=== PATIENT | female | born 1975 | race Caucasian/White ===

== ENCOUNTER → 2020-09-21 13:42 | Outpatient (REF) | payer MEDICAID, SELFPAY ==
--- NOTE | 2020-09-21 13:30 | ECG_ITS ---
Hook-up date: 2020-09-21 14:01:00 Duration: 47:59:00 Test Indications: PALPITATIONS Medications: [id number] QRS complexes * Ventricular ectopics which represent % of total QRS comp. * Supraventricular ectopics which represent % of total QRS comp. * Paced QRS complexs which represent % of total QRS comp. VENTRICULAR ECTOPY * Isolated * Bigeminal Cycles * Couplets * Runs * Beats in Runs * Beats LONGEST at * BPM at :: -- * Beats FASTEST at * BPM at :: -- SUPRAVENTRICULAR ECTOPY * Isolated * Couplets * Runs * Beats in Runs * Beats LONGEST at * BPM at :: -- * Beats FASTEST at * BPM at :: -- HEART RATES 57 MIN at 10:18:45 2020-09-22 89 AVG 140 MAX at 14:15:52 2020-09-22 LONGEST RR 1.0960 secs at 09:08:16 2020-09-22 S-T LEVELS Channel 1 - 128 mm at 14:01:00 2020-09-21 - 128 mm at 14:01:00 2020-09-21 Channel 2 - 128 mm at 14:01:00 2020-09-21 - 128 mm at 14:01:00 2020-09-21 Channel 3 - 128 mm at 03:32:01 -- - 128 mm at 03:32:01 Underlying rhythm is sinus; Average ventricuar rate 89/min; range 57-140/min; About 37% of the time, ventricular rate >100min, sinus tachycardia; No significant ectopy, tachy or naveen-arrhythmias; No events in patient diary; Referred By: Abiola Youssef Overread By: KRISTI LEO
== END ==
LOC: HO.CARD 13:42
PROVIDERS: PCP Family Medicine; Visit Provider Family Medicine
DX: R00.2 Palpitations (principal)
CPT/HCPCS: 93225; 93226

== ENCOUNTER 2020-09-29 15:06 | Outpatient (REF) | payer MEDICAID, SELFPAY ==
[2020-09-30 01:49] LABS: CT PCR NOT DETECTED (Not Detect.); NG PCR NOT DETECTED (Not Detect.)
[2020-10-03 19:21] LABS: HPV mRNA E6/E7 rflx Not Detected (Not Detected)
== END 2020-09-29 15:07 | disposition home or self-care (01) ==
LOC: HO.LAB 15:06
PROVIDERS: PCP Family Medicine; Referring Provider Family Medicine; Visit Provider Advanced Practice Midwife
DX: Z01.419 Encounter for gynecological examination (general) (routine) without abnormal findings (principal); Z20.2 Contact with and (suspected) exposure to infections with a predominantly sexual mode of transmission
CPT/HCPCS: 87491; 87591; 87624; 87625; 88142

== ENCOUNTER → 2021-10-24 14:06 | Outpatient (BNVA) | payer MEDICAID, SELFPAY | PROVIDERS: Visit Provider Advanced Practice Midwife ==

== ENCOUNTER 2021-11-29 11:37 | Outpatient (REF) | payer MEDICAID, SELFPAY ==
--- NOTE | ~2021-11-29 | MM_ITS ---
EXAMINATION: MM SCREENING DIGITAL BREAST TOMOSYNTHESIS, BILATERAL CLINICAL INFORMATION: Screening. Asymptomatic. Status post breast reduction surgery. The lifetime risk of breast cancer based on the Tyrer-Cuzick Model is 10.9%. COMPARISON: Mammography: January 13, 2020 and studies dating back to December 20, 2016 TECHNIQUE: Digital breast tomosynthesis is performed in both the craniocaudal and mediolateral oblique views along with computer-aided detection (CAD). Synthesized 2D images are generated from the tomosynthesis. FINDINGS: The breasts are heterogeneously dense, which may obscure small masses (ACR BI-RADS breast composition Category c). There are no significant masses, abnormal calcifications, or other abnormalities. MM/MM tomosynthesis screening BI IMPRESSION: There are no significant changes from prior study. ASSESSMENT: BI-RADS 1: Negative RECOMMENDATION: Routine annual mammography screening. This patient's information was entered into a reminder system with a target due date for their next mammogram.
== END 2021-11-29 11:38 | disposition home or self-care (01) ==
LOC: HO.MAMMO 11:37
PROVIDERS: PCP Family Medicine; Visit Provider Advanced Practice Midwife
DX: Z12.31 Encounter for screening mammogram for malignant neoplasm of breast (principal)
CPT/HCPCS: 77063; 77067

== ENCOUNTER → 2022-03-05 14:23 | Outpatient (BNVA) | payer MEDICAID, SELFPAY | PROVIDERS: PCP Family Medicine; Visit Provider Advanced Practice Midwife | DX: Z01.419 Encounter for gynecological examination (general) (routine) without abnormal findings (principal) ==

== ENCOUNTER → 2022-05-14 13:14 | Outpatient (REF) | payer MEDICAID, SELFPAY ==
--- NOTE | 2022-05-14 13:16 | CA_ITS ---
Transthoracic Echocardiogram Patient (Last, First, Middle): Cindy Miller, Gender: Female Date of : 1975 Age: 46 Procedure Date: 05/14/2022 Procedure Type: Transthoracic Echocardiogram Location: OP Height: 160.02 cm Weight: 95.26 kg BSA: 1.97 m2 Heart Rate: bpm BP: 106 / 70 mmHg Supervisor Respiratory: CLINT Referring MD: Marshal Ledezma MD Symptoms: BICUSPID AORTIC VALVE Study Quality: Good ECG Rhythm: Sinus Conclusions: - The left ventricular systolic function is normal. The calculated ejection fraction is 61% by biplane method. - There is a bicuspid aortic valve. No evidence of valvular dysfunction. Findings Left Ventricle Normal left ventricular cavity size. There is normal left ventricular wall thickness. The left ventricular systolic function is normal. The calculated ejection fraction is 61% by biplane method. There is no evidence of regional wall motion abnormalities. Diastolic function is normal for age. Right Ventricle Normal right ventricular cavity size and systolic function. Atria Both atria are normal in size. Aortic Valve There is a bicuspid aortic valve. There is no aortic valve regurgitation. No significant aortic stenosis. Mitral Valve The mitral valve appears normal. There is no mitral valve regurgitation. There is no mitral valve stenosis. Pulmonic Valve The pulmonic valve is likely normal. There is trace pulmonic valve regurgitation. Tricuspid Valve Normal tricuspid valve structure. There is no tricuspid valve regurgitation. Tricuspid regurgitation envelope is inadequate for calculation of right ventricular systolic pressure. Great Vessels The aortic annulus, sinuses of valsalva, and asc aorta are normal in size. Venous The inferior vena cava is normal in size and collapses greater than 50% with inspiration. Pericardium/Pleural There is no evidence of pericardial effusion. Prior Study Comparison No significant change compared to prior study dated: 05/22/2020. Measurements 2D Linear Measurements IVSd: 0.88 0.6-0.9/0.6-1.0 cm LVIDd: 4.34 3.9-5.3/4.2-5.9 cm LVIDd Index: 2.20 2.4-3.2/2.2-3.1 cm/m2 LVIDs: 2.35 2.0-3.6 cm LVPWd: 0.80 0.7-1.1 cm LA Diam: 2.10 2.7-3.8/3.0-4.0 cm LAIDs Index: 1.07 1.5-2.3 cm/m2 LV Mass: 141.20 67-162/88-224 g LV Mass Index: 71.68 43-95/49-115 g/m2 LVOT Diam: 2.00 3.0+(-)1.3 cm 2D Systolic Function EF 4C: 61.70 >55% EF 2C: 61.40 >55% EF BiP: 60.60 >55% Mitral Valve MV Pk E: 0.72 MV PK A: 0.99 MV Decel Time: 294.00 E/A: 0.70 E'Lateral: 12.70 E'Medial: 8.81 E/E' Med: 8.20 E/E' Lat: 5.70 PHT: 86.00 MVA PHT: 2.56 Decel [place]: 2.45 Aortic Valve AoV Pk Jairo: 2.07 AoV Mn Jairo: 1.49 AoV VTI: 0.41 AoV Pk Grad: 17.00 Aov Mn Grad: 10.00 VEE Cont.VTI: 1.75 LVOT LVOT Pk Jairo: 1.12 LVOT Mn Jairo: 0.76 LVOT VTI: 0.23 LVOT Pk Grad: 5.00 LVOT Mn Grad: 3.00 LVOT Diam: 2.00 LVOT Area: 3.14 Diastolic Function MV Pk E: 0.72 MV Pk A: 0.99 E/A: 0.70 E'Medial: 8.81 E/E' Med: 8.20 E' Laterial: 12.70 E/E' Lat: 5.70 Right Ventricle TAPSE (mm): 21.20 TVS' Jairo: 10.70 Great Vessels Aorta Sinus of Valsalva: 3.19 2.0-3.[address] [place]: 2.43 1.7-3.4 cm Ao Asc: 3.10 2.1-3.4 cm Ao Arch: 2.80 Updated in Other Vendor System with Status of Final Marshal Ledezma MD electronically signed on 05/17/2022 11:33:08 AM with status of Final
== END ==
LOC: HO.CARD 13:14
PROVIDERS: PCP Family Medicine; Visit Provider Internal Medicine
DX: Z13.89 Encounter for screening for other disorder (principal)
CPT/HCPCS: 93306

== ENCOUNTER → 2022-05-23 12:54 | Outpatient (BNVA) | payer MEDICAID, SELFPAY | PROVIDERS: PCP Family Medicine; Referring Provider Family Medicine; Visit Provider Internal Medicine | DX: I10 Essential (primary) hypertension (principal); Q23.1 Congenital insufficiency of aortic valve; Z79.899 Other long term (current) drug therapy | CPT/HCPCS: 93005; 99212 ==

== ENCOUNTER 2023-02-28 12:24 | Outpatient (REF) | payer MEDICAID, SELFPAY ==
--- NOTE | ~2023-02-28 | XR_ITS ---
EXAMINATION: XR BILATERAL KNEES CLINICAL INFORMATION: Reason for Exam ACUTE PAIN COMPARISON: Knee radiographs 06/26/2017 TECHNIQUE: 3 views of the bilateral knees FINDINGS: RIGHT KNEE: No acute fracture or dislocation. Joint spaces are maintained. No joint effusion. Soft tissues are unremarkable. LEFT KNEE: No acute fracture or dislocation. Joint spaces are maintained. No joint effusion. Soft tissues are unremarkable. XR/XR knee LT 3V IMPRESSION: * No acute osseous abnormality.
--- NOTE | ~2023-02-28 | XR_ITS ---
EXAMINATION: XR BILATERAL KNEES CLINICAL INFORMATION: Reason for Exam ACUTE PAIN COMPARISON: Knee radiographs 06/26/2017 TECHNIQUE: 3 views of the bilateral knees FINDINGS: RIGHT KNEE: No acute fracture or dislocation. Joint spaces are maintained. No joint effusion. Soft tissues are unremarkable. LEFT KNEE: No acute fracture or dislocation. Joint spaces are maintained. No joint effusion. Soft tissues are unremarkable. XR/XR knee RT 3V IMPRESSION: * No acute osseous abnormality.
== END 2023-02-28 12:25 | disposition home or self-care (01) ==
LOC: HO.XRAY 12:24
PROVIDERS: PCP Family Medicine; Visit Provider Family Medicine
DX: M25.561 Pain in right knee (principal); M25.562 Pain in left knee
CPT/HCPCS: 73562

== ENCOUNTER 2023-02-28 15:47 | Outpatient (REF) | payer MEDICAID, SELFPAY ==
--- NOTE | ~2023-02-28 | MM_ITS ---
EXAMINATION: MM SCREENING DIGITAL BREAST TOMOSYNTHESIS, BILATERAL CLINICAL INFORMATION: Screening. Asymptomatic. The lifetime risk of breast cancer based on the Tyrer-Cuzick Model is 11.9%. COMPARISON: Mammography: 11/29/2021 and studies dating back to 12/20/2016. TECHNIQUE: Digital breast tomosynthesis is performed in both the craniocaudal and mediolateral oblique views along with computer-aided detection (CAD). Synthesized 2D images are generated from the tomosynthesis. FINDINGS: The breasts are heterogeneously dense, which may obscure small masses (ACR BI-RADS breast composition Category c). There are some regions of architectural distortion seen bilaterally which appear to be stable and related to patient's reduction mammoplasty. Within the inferior lateral aspect of the left breast there is an enlarging 1 cm well-circumscribed density approximately 7 cm from the nipple for which spot compression and ultrasound evaluation is recommended. There are other circumscribed densities scattered within both breasts. About the central lateral aspect of the right breast there is a lobular contour density measuring approximately 1.6 x 0.7 cm in size with some stable calcifications. This is more prominent than on prior studies and spot compression view and possible ultrasound is recommended. MM/MM tomosynthesis screening BI IMPRESSION: Bilateral densities for further evaluation as described. ASSESSMENT: BI-RADS 0: Incomplete - Need Additional Imaging Evaluation RECOMMENDATION: 1. Additional views of the bilateral breasts. 2. Targeted ultrasound if warranted after review of the additional views. 3. Radiology department staff will contact the patient for additional imaging.
== END 2023-02-28 15:48 | disposition home or self-care (01) ==
LOC: HO.MAMMO 15:47
PROVIDERS: PCP Family Medicine; Visit Provider Family Medicine
DX: Z12.31 Encounter for screening mammogram for malignant neoplasm of breast (principal)
CPT/HCPCS: 77063; 77067

== ENCOUNTER 2023-03-25 13:15 | Outpatient (REF) | payer MEDICAID, SELFPAY ==
--- NOTE | ~2023-03-25 | MM_ITS ---
EXAMINATION: MM DIAGNOSTIC DIGITAL BREAST TOMOSYNTHESIS, BILATERAL US DIAGNOSTIC ULTRASOUND BREAST, LEFT CLINICAL INFORMATION: Recall from screening for asymmetric density central right breast and oval nodule mid central left breast. Prior history reduction mammoplasty over the years ago. COMPARISON: Prior mammography exams, most recent 02/28/2023. TECHNIQUE: Digital breast tomosynthesis is performed. 2D images are generated from the tomosynthesis. The following views are obtained: Bilateral spot CC, bilateral spot MLO. Ultrasound left breast is targeted to the mid outer breast using grayscale imaging and color Doppler without and with harmonics. FINDINGS: The breasts are heterogeneously dense, which may obscure small masses (ACR BI-RADS breast composition Category c). Additional views right chest demonstrate fibronodular parenchymal pattern similar to borderline decreased from prior exams. There is no interval mass or architectural abnormality or developing density in the area for recall. Additional views left breast demonstrates circumscribed 1 cm nodule with smooth margins representing new finding. Ultrasound left breast demonstrates a simple cyst 4:00 position 8 cm from nipple measuring approximately 1.0 x 0.7 cm. Margins are circumscribed and there is increased through-transmission of sound and no associated color flow. Results are discussed with the patient at time of visit. MM/MM tomosynthesis added view BI IMPRESSION: Left: -Incidental simple cyst 1 cm corresponding to recent mammography. Right: -No significant changes from prior studies. ASSESSMENT: BI-RADS 2: Benign RECOMMENDATION: Routine annual mammography screening. This patient's information was entered into a reminder system with a target due date for their next mammogram.
== END 2023-03-25 13:16 | disposition home or self-care (01) ==
LOC: HO.MAMMO 13:15
PROVIDERS: PCP Family Medicine; Visit Provider Family Medicine
DX: R92.2 Inconclusive mammogram (principal)
CPT/HCPCS: 76642; 77062; 77066

== ENCOUNTER 2024-02-19 12:54 | Outpatient (REF) | payer MEDICAID, SELFPAY ==
--- NOTE | ~2024-02-19 | XR_ITS ---
EXAMINATION: XR CHEST CLINICAL INFORMATION: Dyspnea on exertion COMPARISON: CTA chest 03/06/2018 TECHNIQUE: 2 views of the chest were obtained. FINDINGS: A right chest wall jugular port is present with its tip just above the SVC/RA junction. No significant abnormality is noted involving the heart, lungs, mediastinum, bony thorax or soft tissues. XR/XR chest 2V IMPRESSION: Unremarkable examination.
== END 2024-02-19 12:55 | disposition home or self-care (01) ==
LOC: HO.HHCX 12:54
PROVIDERS: Visit Provider Family Medicine
DX: R06.09 Other forms of dyspnea (principal)
CPT/HCPCS: 71046

== ENCOUNTER 2024-02-19 13:14 | Outpatient (REF) | payer MEDICAID, SELFPAY ==
[2024-02-19 15:55] LABS: MANUAL DIFF FLAG NO
[2024-02-19 15:59] LABS: Basophils Percent Auto 0.3 % (0-2); Hematocrit 38.4 % (37.0-47.0); Hemoglobin 12.6 g/dl (12.0-16.0); Imm Gran Abs Auto 0.02 X10*3/uL (0.00-0.03); Imm Gran Pct Auto 0.5 % (0.0-0.4); Lymphocytes Absolute Auto 0.5 X10*3/uL (1.2-4.9); Lymphocytes Percent Auto 13.5 % (20-40); Mean Corpuscular HGB Conc 32.8 g/dl (31.0-35.0); Mean Corpuscular Hemoglobin 31.7 pg (27.0-33.0); Mean Corpuscular Volume 96.5 fL (80.0-98.0); Mean Platelet Volume 10.5 fL (9.4-12.3); Monocytes Absolute Auto 0.2 X10*3/uL (0.1-1.2); Neutrophils Absolute Auto 3.1 x10*3/uL (2.0-8.3); Neutrophils Percent Auto 79.7 % (45-73); Platelet Count 185 X10*3/uL (160-400); Red Blood Count 3.98 X10*6/uL (4.20-5.50); White Blood Count 3.9 X10*3/uL (4.8-10.8)
[2024-02-19 16:08] LABS: Estimated Average Glucose 117 mg/dL; Hemoglobin A1c % 5.7 % (<6.0)
[2024-02-19 16:16] LABS: Alanine Aminotransferase 59 U/L (0-31); Albumin Level 4.2 g/dL (3.5-5.0); Alkaline Phosphatase 112 U/L (39-117); Anion Gap 9 (12-20); Aspartate Amino Transferase 33 U/L (5-31); Bilirubin Direct 0.2 mg/dL (0.0-0.5); Bilirubin Total 0.5 mg/dL (0.0-1.0); Blood Urea Nitrogen 14 mg/dL (9-16); Calcium 10.4 mg/dL (8.4-10.2); Carbon Dioxide 28 mmol/L (22-29); Chloride 105 mmol/L (96-108); Cholesterol 204 mg/dL (<200); Estimated Glomerular Filt Rate > 60; Glucose Random 174 mg/dL (60-115); HDL Cholesterol 59 mg/dL (>40); LDL Cholesterol Calculated 133 mg/dL (<100); Potassium 4.3 mmol/L (3.3-5.1); Sodium 138 mmol/L (135-145); Total Protein 8.2 g/dL (6.5-8.0); Triglycerides 62 mg/dL (<150)
[2024-02-19 16:30] LABS: Vitamin D 25-OH Total 36.1 ng/mL (>30)
[2024-02-19 16:33] LABS: Free T4 (Free Thyroxine) 0.89 ng/dL (0.71-1.85)
[2024-02-19 17:56] LABS: CT PCR NOT DETECTED (Not Detect.); NG PCR NOT DETECTED (Not Detect.)
[2024-02-20 08:15] LABS: HBS Num1 0.28 mIU/mL (0-7.99); HBsAGNum1 0.32 S/CO (0.00-0.99); Hepatitis B Surface Antigen Negative (Negative); ~HepC Num1 0.12 S/CO (0.00-0.79); ~Hepatitis B Surface Antibody NONREACTIVE (Nonreactive); ~Hepatitis C Antibody Nonreactive (Nonreactive)
[2024-02-20 08:20] LABS: HIV AB/AG Nonreactive (Nonreactive); HIV Num 1 0.05 S/CO (0.00-0.99)
[2024-02-20 11:28] LABS: RPR Rapid Plasma Reagin NON-REACTIVE (NON-REACTIVE)
== END 2024-02-19 13:15 | disposition home or self-care (01) ==
LOC: HO.HHCL 13:14
PROVIDERS: Visit Provider Family Medicine
DX: Z01.419 Encounter for gynecological examination (general) (routine) without abnormal findings (principal); I10 Essential (primary) hypertension; C18.9 Malignant neoplasm of colon, unspecified; Z98.51 Tubal ligation status; Z79.899 Other long term (current) drug therapy
CPT/HCPCS: 0353U; 36415; 71046; 80048; 80061; 80076; 82306; 83036; 84439; 84443; 85025; 86592; 86706; 86803; 87340; 87389; 99396

== ENCOUNTER 2024-02-19 13:42 | Outpatient (AMB) | payer MEDICAID, SELFPAY ==
--- NOTE | 2024-02-19 13:46 | MHC.OFFVIS ---
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 She says she has never had an abnormal Pap smear. She has not sexually active and has not been for 9 years. She is currently undergoing chemotherapy that she has being currently infused via pump at the moment. She had colon cancer diagnosed last April and it has metastasized to her liver. The last CT scan said that her lesions on her liver were much smaller and she has another CT scan on Friday and follow-up visit a few days later with the doctor to review this she says she believes she has a couple of polyps in her colon that will be removed sometime after the liver is cleared. She has her 4 daughters who support her and she has her 5 grand children and she likes playing with them and spending time with them. The 1st bout of chemotherapy was very hard with lots of side effects but now she is enduring it a whole lot better. She has no worries about any infection and has not had any sexual contact in 9 years so does not need STI testing. Patient states she has not had any menses since she started the chemotherapy. [facility] Medical History (Updated 02/19/24 @ 14:43 by Lorraine Card CNM) Colon cancer Migraine with aura Anemia HTN (hypertension) Surgical History (Updated 02/19/24 @ 14:43 by Lorraine Card CNM) Hx of tubal ligation Hx of bilateral breast reduction surgery Family History Maternal Aunt Breast cancer Social History Alcohol intake: never Gender identity: Female Female Reproductive History Menstrual Age of Menarche: 11 Duration of menses: 3-5 days control method: permanent sterilization Total pregnancies: 5 Full term: 4 Date of last pap smear: 10/02/20 (neg,previous [id number] wnl) History of abnormal mammogram: No Physical Exam Const Other: Patient is wearing a pump attached by a belt externally that is infusing chemotherapy agents into her right upper chest and is covered with a Tegaderm dressing. She has scars from breast reduction surgery years ago General: healthy appearing, comfortable, no acute distress, well developed and alert Nutritional Appearance: average body habitus Orientation/consciousness: patient oriented x3 Limitations: no limitations HEENT Head: Yes normocephalic Neck Neck: Yes normal visual inspection Chest Chest palpation & inspection: normal inspection of the chest Breast/axilla inspection: normal inspection of the breasts and normal inspection of the axillae Breast/axilla palpation: normal palpation of the breasts and normal palpation of the axillae Resp Effort & Inspection: normal respiratory effort GI Inspection: Yes normal to inspection, No Abdominal wall edema and No distended Palpation (GI): Soft to palpation and nontender Other: External vagina within normal limits vagina pink moist cervix multiparous pink moist with normal healthy appearing mucus uterus is small anteverted mobile nontender good tone with Kegel. General: Yes bladder normal to palpation External Female Exam: normal external appearance and normal appearance of the urethra Speculum Exam - Vagina: normal appearance of the vagina, normal palpation and normal vaginal discharge Speculum Exam - Cervix: normal appearance of the cervix, normal palpation and nontender Bimanual exam- vagina & uterus: normal bimanual exam, normal palpation, uterine size normal, bladder normal to palpation, consistency normal, normal palpation, uterine mobility normal, uterine shape normal, No Cervical tenderness present, non-tender and no cervical motion tenderness Bimanual Exam- Adnexa, other: normal adnexae, no masses, normal and No adnexal tenderness Neuro General: patient oriented x3 Results Reviewed Results Reviewed: Name: Cindy Miller Specimen #: [id number] Age/Sex: 44/F Attending: Maral Patel CNM : 1975 Submitted by: Maral Patel CNM Collected: 09/29/20 MR #: [id number] Received: 10/02/20 Status: [facility] REF Location: .LAB Interpretation Satisfactory for evaluation. Negative for intraepithelial lesion or malignancy. HPV mRNA E6/E7: NOT DETECTED This assay detects E6/E7 viral messenger RNA (mRNA) from 14 high-risk HPV types (16, 18, 31, 33, 35, 39, 45, 51, 52, 56, 58, 59, 66, 68) HPV testing performed by [facility], [place], [place]. See reference laboratory portion of the EMR for entire report. Clinical Information LMP: On ocp's Previous PAP test: 2015, wnl Other history: On ocp's Material Received ThinPrep cervical Electronically Signed By: Leonor Cummins 10/16/20 1324 The Pap Test is a screening procedure with the inherent possibility of both false negative and false positive results. Results should be interpreted in the context of historic and current clinical findings. Reliability of the Pap Test is enhanced by performing the test on a regular repetitive basis. Patient: Cindy Miller Age/Sex: 44/F MR#: [id number] Page 1 of 1 Assessment & Plan Assessment & Plan (1) Encounter for annual routine gynecological examination: Code(s): Z01.419 - Encounter for gynecological examination (general) (routine) without abnormal findings (2) Breast cancer screening: Comment: States she gets yearly mammograms and her next 1 is coming up in about 2 weeks Code(s): Z12.39 - Encounter for other screening for malignant neoplasm of breast (3) Colon cancer: Comment: Patient is currently undergoing chemotherapy via a pump that she wears on her for her colon cancer, with Mets to the liver, she says it was discovered April of 2023. Code(s): C18.9 - Malignant neoplasm of colon, unspecified (4) Hx of tubal ligation: Code(s): Z98.51 - Tubal ligation status Plan -----Discussed in this visit the following: healthy balanced diet, regular and consistent exercise, getting recommended health screens, doing the best she can for her particular health concerns, kegel exercises, pap smear screening and followup recommendations, mammography screening and SBE, normal changes in cycles in her life stage--- . Patient is currently undergoing chemotherapy for her colon cancer with metastases to her liver. She is getting ongoing care and CT scan and evaluations and follow-up with her providers and she is also getting her mammogram screening which is also coming up soon. She has not sexually active she has no longer getting menses since she started the chemo. She has support of her family and daughters. She enjoys spending time with her grand children and is feeling very hopeful we will see her in 1 year Pap smear was done no other testing for STIs necessary or done. Orders: Orders Pap Smear Today Z01.419 - Encounter for gynecological examination (general) (routine) without abnormal findings Coding Level of Care Code Est Pt Prev Care 40-64y(82631) Diagnoses Encounter for annual routine gynecological examination Z01.419 Breast cancer screening Z12.39 Colon cancer C18.9 Hx of tubal ligation Z98.51
[2024-02-19 13:50] VITALS: BP 128/74; BMI 30.3
== END 2024-02-19 14:36 | disposition home or self-care (01) ==
LOC: HO.HWSM 13:42
PROVIDERS: PCP Family Medicine; Visit Provider Advanced Practice Midwife
DX: Z01.419 Encounter for gynecological examination (general) (routine) without abnormal findings (principal); Z12.39 Encounter for other screening for malignant neoplasm of breast; C18.9 Malignant neoplasm of colon, unspecified; Z98.51 Tubal ligation status
CPT/HCPCS: 99396

== ENCOUNTER 2024-02-19 14:36 | Outpatient (REF) | payer MEDICAID, SELFPAY ==
[2024-02-26 04:34] LABS: HPV mRNA E6/E7 rflx Not Detected (Not Detected)
== END 2024-02-19 14:37 | disposition home or self-care (01) ==
LOC: HO.LAB 14:36
PROVIDERS: Visit Provider Advanced Practice Midwife
DX: Z01.419 Encounter for gynecological examination (general) (routine) without abnormal findings (principal); R06.09 Other forms of dyspnea; I10 Essential (primary) hypertension
CPT/HCPCS: 87624; 88142

== ENCOUNTER 2024-03-02 12:28 | Outpatient (REF) | payer MEDICAID, SELFPAY ==
--- NOTE | ~2024-03-02 | MM_ITS ---
EXAMINATION: MM SCREENING DIGITAL BREAST TOMOSYNTHESIS, BILATERAL CLINICAL INFORMATION: Screening. Asymptomatic. The patient is status post bilateral breast reduction. COMPARISON: Mammography: This study is compared with prior exams dating back to 2018. TECHNIQUE: Digital breast tomosynthesis is performed in both the craniocaudal and mediolateral oblique views along with computer-aided detection (CAD). Synthesized 2D images are generated from the tomosynthesis. FINDINGS: There are scattered areas of fibroglandular density (ACR BI-RADS breast composition Category b). There are no significant masses, abnormal calcifications, or other abnormalities. There are post reduction changes in each breast. MM/MM tomosynthesis screening BI IMPRESSION: No mammographic evidence of malignancy. ASSESSMENT: BI-RADS BI-RADS 2 - Benign Findings RECOMMENDATION: Routine annual mammography screening. 1 year F/U This examination should not preclude the clinical evaluation of a suspicious palpable abnormality. This patient's information was entered into a reminder system with a target due date for their next mammogram.
== END 2024-03-02 12:29 | disposition home or self-care (01) ==
LOC: HO.MAMMO 12:28
PROVIDERS: PCP Family Medicine; Visit Provider Family Medicine
DX: Z12.31 Encounter for screening mammogram for malignant neoplasm of breast (principal)
CPT/HCPCS: 77063; 77067

== ENCOUNTER → 2024-03-02 13:00 | Outpatient (BNV) | payer MEDICAID, SELFPAY | PROVIDERS: PCP Family Medicine; Visit Provider Radiology Diagnostic Radiology | DX: Z12.31 Encounter for screening mammogram for malignant neoplasm of breast (principal) | CPT/HCPCS: 77063; 77067 ==

== ENCOUNTER → 2024-04-09 10:43 | Outpatient (REF) | payer MEDICAID, SELFPAY ==
--- NOTE | 2024-04-09 10:46 | CA_ITS ---
Transthoracic Echocardiogram Patient (Last, First, Middle): Cindy Miller, Gender: Female Date of : 1975 Age: 48 Procedure Date: 04/09/2024 Procedure Type: Transthoracic Echocardiogram Location: OP Height: 160. cm Weight: 80.29 kg BSA: 1.84 m2 Heart Rate: 75 bpm BP: 105 / 75 mmHg Bike Technician: ZEFERINO Referring MD: Marshal Ledezma MD Symptoms: Q23.1 - Congenital insufficiency of aortic valve Study Quality: Adequate ECG Rhythm: Sinus Conclusions: - Normal left ventricular size, thickness, systolic function, and wall motion. - Diastolic function is normal for age. - Normal right ventricular cavity size and systolic function. - There is a bicuspid aortic valve. The [place] is between the right coronary cusp and left coronary cusp. There is no aortic valve stenosis. There is no aortic valve regurgitation. Findings Left Ventricle Normal left ventricular size, thickness, systolic function, and wall motion. The visually estimated ejection fraction is between 60-65%. Diastolic function is normal for age. Right Ventricle Normal right ventricular cavity size and systolic function. Atria Both atria are normal in size. Aortic Valve There is a bicuspid aortic valve. The [place] is between the right coronary cusp and left coronary cusp. There is no aortic valve stenosis. There is no aortic valve regurgitation. Mitral Valve Normal mitral valve structure and function. There is no mitral valve regurgitation. There is no mitral valve stenosis. Pulmonic Valve The pulmonic valve is likely normal. Tricuspid Valve Normal tricuspid valve structure. There is no tricuspid valve regurgitation. Tricuspid regurgitation envelope is inadequate for calculation of right ventricular systolic pressure. Normal right atrial pressure. Great Vessels The visualized portions of the pulmonary artery and branches are normal. Venous The inferior vena cava is normal in size and collapses greater than 50% with inspiration. Pericardium/Pleural There is no evidence of pericardial effusion. Prior Study Comparison No significant change compared to prior study dated: 05/14/2022. Measurements 2D Linear Measurements IVSd: 0.93 0.6-0.9/0.6-1.0 cm LVIDd: 4.08 3.9-5.3/4.2-5.9 cm LVIDd Index: 2.22 2.4-3.2/2.2-3.1 cm/m2 LVIDs: 2.26 2.0-3.6 cm LVPWd: 0.91 0.7-1.1 cm LA Diam: 2.50 2.7-3.8/3.0-4.0 cm LAIDs Index: 1.36 1.5-2.3 cm/m2 LV Mass: 144.48 67-162/88-224 g LV Mass Index: 78.52 43-95/49-115 g/m2 LVOT Diam: 2.20 3.0+(-)1.3 cm 2D Systolic Function EF 4C: 67.20 >55% EF 2C: 61.30 >55% EF BiP: 65.10 >55% Mitral Valve MV Pk E: 0.73 MV PK A: 0.73 MV Decel Time: 298.00 E/A: 1.00 E'Lateral: 8.81 E'Medial: 7.40 E/E' Med: 9.80 E/E' Lat: 8.30 PHT: 87.00 MVA PHT: 2.53 Decel [place]: 2.44 Aortic Valve AoV Pk [place]: 1.69 AoV Mn [place]: 1.20 AoV VTI: 0.31 AoV Pk Grad: 11.00 Aov Mn Grad: 7.00 VEE Cont.VTI: 2.20 LVOT LVOT Pk [place]: 0.98 LVOT Mn [place]: 0.68 LVOT VTI: 0.18 LVOT Pk Grad: 4.00 LVOT Mn Grad: 2.00 LVOT Diam: 2.20 LVOT Area: 3.80 Diastolic Function MV Pk E: 0.73 MV Pk A: 0.73 E/A: 1.00 E'Medial: 7.40 E/E' Med: 9.80 E' Laterial: 8.81 E/E' Lat: 8.30 Right Ventricle TAPSE (mm): 18.70 TVS' [place]: 9.46 Tricuspid Valve RA Press: 3.00 Great Vessels Aorta Sinus of Valsalva: 3.00 2.0-3.5 cm Ao Asc: 3.10 2.1-3.4 cm Pulmonary Valve PV Pk [place]: 0.90 Peak PV Grad: 3.00 Updated in Other Vendor System with Status of Final Geraldo Butt MD electronically signed on 04/12/2024 5:20:25 PM with status of Final
== END ==
LOC: HO.CARD 10:43
PROVIDERS: Absent Provider Internal Medicine Cardiovascular Disease; PCP Family Medicine; Visit Provider Family Medicine
DX: Q23.1 Congenital insufficiency of aortic valve (principal); R06.09 Other forms of dyspnea
CPT/HCPCS: 93306

== ENCOUNTER → 2024-04-09 10:46 | Outpatient (BNV) | payer MEDICAID, SELFPAY | PROVIDERS: Absent Provider Internal Medicine Cardiovascular Disease; PCP Family Medicine; Visit Provider Internal Medicine Cardiovascular Disease | DX: Q23.1 Congenital insufficiency of aortic valve (principal) | CPT/HCPCS: 93303 ==

== ENCOUNTER 2024-05-25 12:29 | Outpatient (AMB) | payer MEDICAID, SELFPAY ==
[2024-05-25 12:34] VITALS: BP 116/76; PULSE 91; BMI 31.4
--- NOTE | 2024-05-25 12:34 | A.OFFVIS_ITS ---
Vital Signs 05/25/24 12:34 Height 5 ft 3 in Weight 177 lb 4.026 oz BMI 31.4 BP 116/76 Blood Pressure Location Lt brachial Position Sitting Pulse 91 Intake Visit Reasons: 2 years followup w/ekg after echo dx: ess hyper Padder Required: Yes Padder Name: Amada [id number]/micheal/niuean Accompanied by: Self / Same As Patient Allergies No Known Allergies Allergy (Verified 02/19/24 13:52) Medication List - Last Reconciled 05/25/24 by Marshal Ledezma MD amitriptyline 10 mg PO DAILY dexamethasone 4 mg PO DAILY hydrochlorothiazide 25 mg PO DAILY lisinopril 30 mg PO DAILY melatonin 10 mg PO BEDTIME PRN metformin 500 mg PO BID montelukast (Singulair) 10 mg PO DAILY multivitamin 1 tab PO DAILY omeprazole 20 mg PO DAILY ondansetron HCl 8 mg PO Q8H pantoprazole 20 mg PO DAILY prochlorperazine maleate 10 mg PO Q8H PRN HPI Comments Details: Cindy returns for follow-up. Last seen in 2019. She has bicuspid aortic valve. She has a history of hypertension on lisinopril and hydrochlorothiazide. In the process of getting worked up for shortness of breath and chest discomfort she had an echocardiogram showing bicuspid aortic valve. However no valvular dysfunction. She is getting seen for this periodically. Otherwise, patient states that she got diagnosed with colon cancer. Per [facility] notes, metastatic adenocarcinoma of colon with liver and possible bone Mets. From cardiac, no specific complaints. She has had longstanding atypical chest pains and that has still the same. Nonexertional. [facility] Medical History (Updated 03/08/24 @ 09:53 by Lorraine Card CNM) Colon cancer Migraine with aura Anemia HTN (hypertension) Surgical History (Updated 02/19/24 @ 14:43 by Lorraine Card CNM) Hx of tubal ligation Hx of bilateral breast reduction surgery Family History Maternal Aunt Breast cancer Social History (Updated 05/25/24 @ 12:42 by Eulalia Ferrari CMA) Alcohol intake: never Patient Tobacco Use Status: Never used Tobacco Gender identity: Female Female Reproductive History Menstrual Age of Menarche: 11 Review of Systems Const Denies chills, Denies fatigue, Denies fever(s), Denies weight gain and Denies weight loss Card Denies chest pain, Denies leg edema, Denies lightheadedness, Denies palpitatio ns, Denies dyspnea on exertion and Denies orthopnea Resp Denies cough and Denies dyspnea on exertion GI Reports melena, Denies hematochezia and Denies change in stool character Musc Denies muscle weakness and Denies radiating pain into limb Endo Denies fatigue and Denies palpitations Physical Exam Vital Signs: Last Vital Signs Pulse 91 05/25/24 12:34 BP 116/76 05/25/24 12:34 BMI result Body Mass Index 31.4 Const General: comfortable and no acute distress Orientation/consciousness: patient oriented x3 HEENT Other: Unremarkable Head: Yes normal to inspection Neck Neck: Yes normal visual inspection Chest Chest palpation & inspection: normal inspection of the chest Resp Auscultation: clear to auscultation bilaterally Cardio Palpation: normal PMI Heart sounds: S1 normal heart sound present, S2 normal heart sound present, no gallops, no murmurs and no rubs GI Palpation (GI): Soft to palpation Back/Spine/Pelvis Other: unremarkable Skin General skin exam: no rashes or lesions noted Neuro General: patient oriented x3 Extrem General: Yes normal to inspection Psych Mental Status: mental status grossly normal Office Procedures EKG Details: EKG with sinus rhythm at 91/Min; possible left atrial enlargement; [place] [id number], Complete Assessment & Plan Assessment & Plan (1) Bicuspid aortic valve: Code(s): Q23.1 - Congenital insufficiency of aortic valve Category: Medical Plan: In the most recent echocardiogram, bicuspid aortic valve noted with raphe between the right and left coronary cusp. No aortic stenosis or regurgitation. Normal aortic root and ascending aortic size. No specific management. We can follow up with another echocardiogram in 2-3 years. In recent [facility] CT scan-no coronary artery calcification noted. No pericardial effusion. No aortic aneurysm. Coding Level of Care Code Est Pt Level 3 (40215) Diagnoses Bicuspid aortic valve Q23.1 CPT Codes EKG - CPT: 93082-[id number], Complete ([id number])
== END 2024-05-25 13:04 | disposition home or self-care (01) ==
PROVIDERS: PCP Family Medicine; Visit Provider Internal Medicine
DX: Q23.1 Congenital insufficiency of aortic valve (principal)
CPT/HCPCS: 93010; 99213

== ENCOUNTER → 2024-05-25 12:29 | Outpatient (BNVA) | payer MEDICAID, SELFPAY | PROVIDERS: PCP Family Medicine; Visit Provider Internal Medicine | DX: Q23.1 Congenital insufficiency of aortic valve (principal); I10 Essential (primary) hypertension; Z79.899 Other long term (current) drug therapy | CPT/HCPCS: 93005; 99212 ==

== ENCOUNTER 2025-02-08 10:40 | Outpatient (REF) | payer MEDICAID, SELFPAY ==
[2025-02-08 13:32] LABS: Hemoglobin 12.6 g/dl (12.0-16.0); Mean Corpuscular HGB Conc 33.2 g/dl (31.0-35.0); Mean Corpuscular Hemoglobin 29.7 pg (27.0-33.0); Mean Corpuscular Volume 89.6 fL (80.0-98.0); Mean Platelet Volume 11.2 fL (9.4-12.3); Platelet Count 172 X10*3/uL (160-400); Red Blood Count 4.24 X10*6/uL (4.20-5.50); Red Cell Distribution Width 14.1 % (11.0-16.0); White Blood Count 5.3 X10*3/uL (4.8-10.8)
[2025-02-08 13:46] LABS: Estimated Average Glucose 143 mg/dL; Hemoglobin A1c % 6.6 % (<6.0)
[2025-02-08 13:54] LABS: Alanine Aminotransferase 43 U/L (0-31); Albumin Level 3.9 g/dL (3.5-5.0); Anion Gap 11 (12-20); Aspartate Amino Transferase 29 U/L (5-31); Bilirubin Direct 0.2 mg/dL (0.0-0.5); Bilirubin Total 0.4 mg/dL (0.0-1.0); Blood Urea Nitrogen 12 mg/dL (9-16); Calcium 9.3 mg/dL (8.4-10.2); Carbon Dioxide 29 mmol/L (22-29); Chloride 102 mmol/L (96-108); Cholesterol 187 mg/dL (<200); Estimated Glomerular Filt Rate > 60; Glucose Random 147 mg/dL (60-115); HDL Cholesterol 42 mg/dL (>40); LDL Cholesterol Calculated 120 mg/dL (<100); Potassium 3.7 mmol/L (3.3-5.1); Sodium 138 mmol/L (135-145); Total Protein 7.2 g/dL (6.5-8.0); Triglycerides 128 mg/dL (<150)
[2025-02-08 14:10] LABS: HBS Num1 1.05 mIU/mL (0-7.99); HBc Num1 0.29 S/CO (0.00-0.79); HBsAGNum1 0.29 S/CO (0.00-0.99); HIV AB/AG Nonreactive (Nonreactive); HIV Num 1 0.05 S/CO (0.00-0.99); Hepatitis B Core Antibody Nonreactive (Nonreactive); Hepatitis B Surface Antigen Negative (Negative); ~Hepatitis B Surface Antibody NONREACTIVE (Nonreactive); ~Hepatitis C Antibody Nonreactive (Nonreactive)
[2025-02-08 14:16] LABS: Vitamin D 25-OH Total 46.8 ng/mL (>30)
[2025-02-08 14:17] LABS: Alkaline Phosphatase 96 U/L (39-117)
[2025-02-08 14:29] LABS: Creatinine Urine 180.67 mg/dL
[2025-02-08 14:44] LABS: CT PCR NOT DETECTED (Not Detect.); NG PCR NOT DETECTED (Not Detect.)
[2025-02-09 04:14] LABS: Hepatitis A Antibody IgG Nonreactive (Nonreactive); ~Hepatitis A Antibody IgG 0.73 S/CO (0.00-0.99)
[2025-02-09 09:53] LABS: RPR Rapid Plasma Reagin NON-REACTIVE (NON-REACTIVE)
== END 2025-02-08 10:41 | disposition home or self-care (01) ==
LOC: HO.HHCL 10:40
PROVIDERS: Visit Provider Family Medicine
DX: I10 Essential (primary) hypertension (principal)
CPT/HCPCS: 80048; 80061; 80076; 82043; 82306; 82570; 83036; 84439; 84443; 85027; 86592; 86704; 86706; 86708; 86803; 87340; 87389; 87491; 87591

== ENCOUNTER 2025-02-21 13:49 | Outpatient (REF) | payer MEDICAID, SELFPAY ==
--- OUTSIDE RECORDS SUMMARY | 2025-02-21 17:47 | XMS_ITS | Encounter Summary ---
Author Organization [employer] Address [address] [facility] 7t [place] [address] Care Team Providers Care Dispute Specialist Name Role Phone SusanneAbiola henson Primary Care Provider + [phone] Reason for Visit * Reason Comments Med Refill Encounter Details Date Type Department Care Team ([facility] st Contact Info) Description 08/06/2024 Refill [facility] [address] [place] [address] Edith Lee, DDS [address] [place] [address] Social History Tobacco Use Types Packs/Day Years Used Date Smoking Tobacco: Never Smokeless Tobacco: Never Alcohol Use Standard Drinks/Week Comments Defer 0 (1 standard drink = 0.6 oz pur e alcohol) Depression Answer Date Recorded Patient Health Questionnaire-9 Score 4 02/19/2024 Patient Health Questionnaire-9 Score 4 02/19/2024 Last PHQ-9: Questionnaire Data Not on file 0 02/19/2024 Housing Stability Answer Date Recorded What is your housing situation today? I have cheryle bhakta 02/11/[address] you li ve. Do you have problems with any of the following? None of the above 02/11/2024 Food Insecurity Answer Date Recorded Within the past 12 months, y ou worried that your food would run out before you got money to buy more: Never True 02/11/2024 Within the past 12 months,th e food you bought just didn't last and you didn't have enough money to get more: Never True Transportation Answer Date Recorded In the past 12 months, has l ack of transportation kept you from medical appts, meetings, work or from getting things needed for daily living? Yes, it has kept me from non-medical meetings, work, or getting things that I need 02/11/2024 Utilities Answer Date Recorded In the past 12 months, has t he electric, gas, oil or water company threatened to shut off services in your home? No 02/11/2024 Depression Answer Date Recorded Patient Health Questionnaire-2 Score 0 02/19/2024 Comments Unknown Sex and Gender Information Value Date Recorded Sex Assigned at Female 09/16/2022 10:21 AM EDT Legal Sex Female 10:21 AM EDT Gender Identity Choose not to disclose 10:21 AM EDT Sexual Orientation Straight 09/16/2022 10 :21 AM EDT documented as of this encounter Miscellaneous Notes * Telephone Encounter - Edith Lee DDS - 08/06/2024 10:06 AM EDT Approving, but needs appt for additional refills. * Telephone Encounter - Zbigniew Holcomb DMD - 08/06/2024 9:08 AM EDT Please follow up with Dr. Rodriguez documented in this encounter Plan of Treatment Not on file documented as of this encounter Visit Diagnoses Not on filedocumented in this encounter Additional Health Concerns Assessment Noted Time PHQ-9 Depression Total Score: 4 02/19/20 24 11:15 AM EDT documented as of this encounter Care Teams Dispute Specialist Relationship Specialty Start Date End Date Abiola Youssef DO [address] [place] [address] PCP - General Family Medicine 08/01/15 documented as of this encounter
--- OUTSIDE RECORDS SUMMARY | 2025-02-21 17:47 | XMS_ITS | Encounter Summary ---
Author Organization [employer] Address [address] [facility] 7t [place] [address] Care Team Providers Care Signal And Communications Maintainer Name Role Phone Abiola Youssef DO Primary Care Provider + [phone] Reason for Visit * Reason Comments Med Change Request Encounter Details Date Type Department Care Team ([facility] st Contact Info) Description 05/11/2024 Refill [facility] MED[facility] [address] [place], [place] [phone] Abiola Youssef DO [address] [place], [place] [phone] Type 2 diabetes mellitus without complication, without long-term current use of insulin ([facility]) Social History Tobacco Use Types Packs/Day Years Used Date Smoking Tobacco: Never Smokeless Tobacco: Never Depression Answer Date Recorded Patient Health Questionnaire-9 [...] AM EDT documented as of this encounter Plan of Treatment Not on file documented as of this encounter Visit Diagnoses Diagnosis Type 2 diabetes mellitus without complication, without long-term current use of insulin ([facility]) documented in this encounter Additional Health Concerns Assessment Noted Time PHQ-9 Depression Total Score: 4 02/19/20 24 11:15 AM EDT documented as of this encounter Care Teams Signal And Communications Maintainer Relationship Specialty Start Date End Date Abiola Youssef DO [address] [place] [address] PCP - General Family Medicine 08/01/15 documented as of this encounter
--- OUTSIDE RECORDS SUMMARY | 2025-02-21 17:47 | XMS_ITS | Encounter Summary ---
Author Organization [facility] Address [address] [place] [address] 7 [place] [address] Care Team Providers Care Round Corner Cutter Operator Name Role Phone Abiola Youssef DO Primary Care Provider [phone] Reason for Visit * Reason Comments Med Change Request Encounter Details Date Type Department Care Team ([facility] st Contact Info) Description 10/23/2023 Refill [facility] MEDICINE [address] [place], [place] [phone] Abiola Youssef DO [address] [place] [address] Type 2 diabetes mellitus without complication, without long-term current use of insulin ([facility]) Social History Tobacco Use Types Packs/Day Years Used Date Smoking Tobacco: Never Smokeless Tobacco: Never Comments Unknown Sex and Gender Information Value [...] complication, without long-term current use of insulin (CMS/HCC) documented in this encounter Care Teams Round Corner Cutter Operator Relationship Specialty Start Date End Date Abiola Youssef DO [address] [place], [place] [phone] PCP - General Family Medicine 08/01/15 documented as of this encounter
--- OUTSIDE RECORDS SUMMARY | 2025-02-21 17:47 | XMS_ITS | Encounter Summary ---
Author Organization [employer] Address [address] [facility] 7t [place] [address] Care Team Providers Care Tooth Polisher Name Role Phone Abiola Youssef DO Primary Care Provider + [phone] Reason for Visit * Reason Comments Med Refill Encounter Details Date Type Department Care Team ([facility] st Contact Info) Description 02/16/2025 Refill [facility] [address] [place], [place] [phone] Abiola Youssef DO [address] [place] [address] Nonintractable chronic migraine Social History Tobacco Use Types Packs/Day Years Used Date Smoking Tobacco: Never Smokeless Tobacco: Never Alcohol Use Standard Drinks/Week Comments Never 0 (1 standard drink = 0.6 oz pur e alcohol) Depression Answer Date Recorded Patient Health Questionnaire-9 Score 4 02/19/2024 Patient Health Questionnaire-9 Score 4 02/19/2024 Last PHQ-9: Questionnaire Data Not on file 0 02/19/2024 Housing Stability Answer Date Recorded What is your housing situation today? I have housing today, but I am worried about losing housing in the future 12/28/[address] you li ve. Do you have problems with any of the following? None of the above 12/28/2024 Food Insecurity Answer Date Recorded Within the [...] from getting things needed for daily living? No 12/28/2024 Utilities Answer Date Recorded In the past 12 months, has t he electric, gas, oil or water company threatened to shut off services in your home? No 02/11/2024 Depression Answer Date Recorded Patient Health Questionnaire-2 Score 0 02/19/2024 Internet Access Answer Date Recorded Internet Access Q1 Yes 12/28/2024 Internet Access Q2 Not on file 12/28/2024 Comments No Sex and Gender Information Value Date Recorded Sex Assigned at Female 09/16/2022 10:21 AM EDT Legal Sex Female 10:21 AM EDT Gender Identity Choose not to disclose 10:21 AM EDT Sexual Orientation Straight 09/16/2022 10 :21 AM EDT documented as of this encounter Plan of Treatment Not on file documented as of this encounter Visit Diagnoses Diagnosis Nonintractable chronic migraine documented in this encounter Additional Health Concerns Assessment Noted Time PHQ-9 Depression Total Score: 4 02/19/20 24 11:15 AM EDT documented as of this encounter Care Teams Tooth Polisher Relationship Specialty Start Date End Date Abiola Youssef DO [address] [place] [address] PCP - General Family Medicine 08/01/15 documented as of this encounter
--- OUTSIDE RECORDS SUMMARY | 2025-02-21 17:47 | XMS_ITS | Encounter Summary ---
Author Organization [facility] Address [address] [place] [address] 7 [place] [address] Care Team Providers Care Ophthalmic Medical Technologist Name Role Phone Abiola Youssef DO Primary Care Provider [phone] Reason for Visit * Reason Comments Med Refill Encounter Details Date Type Department Care Team (Late st Contact Info) Description 11/24/2023 Refill [facility] MEDIC[facility] [address] [place], [place] [phone] Abiola Youssef DO [address] [place] [address] Hypertension, unspecified type Social History Tobacco Use Types Packs/Day Years [...] as of this encounter Visit Diagnoses Diagnosis Hypertension, unspecified type documented in this encounter Care Teams Ophthalmic Medical Technologist Relationship Specialty Start Date End Date Abiola Youssef DO [address] [place], [place] [phone] PCP - General Family Medicine 08/01/15 documented as of this encounter
--- OUTSIDE RECORDS SUMMARY | 2025-02-21 17:47 | XMS_ITS | Encounter Summary ---
Author Organization [employer] Address [address] [facility] 7t [place] [address] Care Team Providers Care Trade Specialist Name Role Phone Abiola Youssef DO Primary Care Provider + [phone] Reason for Visit * Reason Comments Med Refill Encounter Details Date Type Department Care Team ([facility] st Contact Info) Description 11/15/2024 Refill [facility] MED[facility]INE [address] [place], [place] [phone] Abiola Youssef DO [address] [place], [place] [phone] Social History Tobacco Use Types Packs/Day Years [...] documented as of this encounter Care Teams Trade Specialist Relationship Specialty Start Date End Date Abiola Youssef DO [address] [place] [address] PCP - General Family Medicine 08/01/15 documented as of this encounter
--- OUTSIDE RECORDS SUMMARY | 2025-02-21 17:47 | XMS_ITS | Encounter Summary ---
Author Organization [employer] Address [address] [place] [address] 7 [place] [address] Care Team Providers Care Intern Product Marketing Manager Name Role Phone Abiola Youssef DO Primary Care Provider [phone] Reason for Visit * Reason Comments Med Refill Encounter Details Date Type Department Care Team ([facility] st Contact Info) Description 12/15/2023 Refill [facility] [address] [place], [place] [phone] Abiola Youssef DO [address] [place] [address] Encounter for general adult medical examination without abnormal findings Social History Tobacco Use Types Packs/Day Years [...] as of this encounter Visit Diagnoses Diagnosis Encounter for general adult medical examination without abnormal findings documented in this encounter Care Teams Intern Product Marketing Manager Relationship Specialty Start Date End Date Abiola Youssef DO [address] [place] [address] PCP - General Family Medicine 08/01/15 documented as of this encounter
--- OUTSIDE RECORDS SUMMARY | 2025-02-21 17:47 | XMS_ITS | Encounter Summary ---
Author Organization [email or web address] [facility] Address [address] [place] [address] [address] [place] [address] Care Team Providers Care Quality Assurance Practice Manager Name Role Phone Abiola Youssef DO Primary Care Provider [phone] Reason for Visit * Reason Onset Date Comments Med Refill 11/17/2023 Encounter Details Date Type Department Care Team (Late st Contact Info) Description 11/17/2023 Refill [facility] MEDIC[facility] [address] [place], [place] [phone] Abiola Youssef DO [address] [place] [address] Type 2 diabetes mellitus without complication, without long-term current use of insulin ([facility]) Social History Tobacco Use Types Packs/Day [...] (CMS/HCC) documented in this encounter Care Teams Quality Assurance Practice Manager Relationship Specialty Start Date End Date Abiola Youssef DO [address] [place], [place] [phone] PCP - General Family Medicine 08/01/15 documented as of this encounter
--- OUTSIDE RECORDS SUMMARY | 2025-02-21 17:47 | XMS_ITS | Encounter Summary ---
Author Organization [employer] Address [address] [facility] 7t [place] [address] Care Team Providers Care Wire Transfer Clerk Name Role Phone SusanneAbiola henson Primary Care Provider + [phone] Reason for Visit * Reason Comments Med Refill Encounter Details Date Type Department Care Team ([facility] st Contact Info) Description 07/04/2024 Refill [facility] ADULT D[facility] [address] [place] [address] Edith Lee, DDS [address] [place] [address] Social History Tobacco Use Types Packs/Day Years [...] Telephone Encounter - Edith Lee DDS - 07/05/2024 8:00 AM EDT Approving, but needs appt for additional refills. documented in this encounter Plan of Treatment Not on file documented as of this encounter Visit Diagnoses Not on filedocumented in this encounter Additional Health Concerns Assessment Noted Time PHQ-9 Depression Total Score: 4 02/19/20 24 11:15 AM EDT documented as of this encounter Care Teams Wire Transfer Clerk Relationship Specialty Start Date End Date Abiola Youssef DO [address] [place] [address] PCP - General Family Medicine 08/01/15 documented as of this encounter
--- OUTSIDE RECORDS SUMMARY | 2025-02-21 17:47 | XMS_ITS | Encounter Summary ---
Author Organization [employer] Address [address] [facility] 7t [place] [address] Care Team Providers Care Postage Machine Operator Name Role Phone Abiola Youssef DO Primary Care Provider + [phone] Encounter Details Date Type Department Care Team (Late st Contact Info) Description 02/13/2023 Orders Only [facility] CHC MED & PEDS [address] [place] [address] Abiola Farnsworth LPN Social History Tobacco Use Types Packs/Day Years Used Date Smoking Tobacco: Never Assessed Comments Unknown Sex and Gender Information Value Date Recorded Sex Assigned at Female 09/16/2022 10:21 AM EDT Legal Sex Female 10:21 AM EDT Gender Identity Choose not to disclose 10:21 AM EDT Sexual Orientation Straight 09/16/2022 10 :21 AM EDT documented as of this encounter Plan of Treatment Not on file documented as of this encounter Procedures Procedure Name Priority Date/Time Associated Diagnosis Comments BI MAMMOGRAM SCREENING TOMOSYNTHESIS BILATERAL Routine 02/28/2023 4:10 PM EDT XR KNEE 3 VIEWS RIGHT Routine 02/28/2023 12:55 PM EDT XR KNEE 3 VIEWS LEFT Routine 02/28/2023 12:55 PM EDT documented in this encounter Results * BI Mammogram Screening Tomosynthesis Bilateral (02/28/2023 4:10 PM EDT) Anatomical Region Laterality Modality Breast Bilateral Mammography 02/28/2023 4:10 PM EDT Narrative 03/03/2023 5:35 PM EDT ? [facility] [facility] ? [address] ?[place] [address] ? Mammography Report ? Signed ? Patient: Miller,Iris ?MR#: [id number] ? : 1975 ?Acct:[id number] ? Age/Sex: 47 / F ?ADM Date: 02/28/23 ? Loc: HO.MAMMO ? Attending Dr: Abiola Youssef DO ? Ordering Physician: Maral Patel CNM ?Results: 0Inco ?? mplete: Needs Additional Imaging Evaluation ? Date of Service: 02/28/23 ?Follow Up: Additional Imagi ?? ng ? Procedure(s): MM tomosynthesis screening BI ?? Accession Number(s): [id number] ? cc: Maral Patel CNMadelin ? EXAMINATION: ?? MM SCREENING DIGITAL BREAST TOMOSYNTHESIS, BILATERAL ? CLINICAL INFORMATION: ? Screening. Asymptomatic. ? The lifetime risk of breast cancer based on the Tyrer-Cuzick Model is ?? 11.9%. ? COMPARISON: ?? Mammography: 11/29/2021 and studies dating back to 12/20/2016. ? TECHNIQUE: ?? Digital breast tomosynthesis is performed in both the craniocaudal and ?? mediolateral oblique views along with computer-aided detection (CAD). ?? Synthesized 2D images are generated from the tomosynthesis. ? FINDINGS: ?? The breasts are heterogeneously dense, which may obscure small masses ?? (ACR BI-RADS breast composition Category c). ? There are some regions of architectural distortion seen bilaterally ?? which appear to be stable and related to patient's reduction ?? mammoplasty. ? Within the inferior lateral aspect of the left breast there is an ?? enlarging 1 cm well-circumscribed density approximately 7 cm from the ?? nipple for which spot compression and ultrasound evaluation is ?? recommended. There are other circumscribed densities scattered within ?? both breasts. ? About the central lateral aspect of the right breast there is a lobular ?? contour density measuring approximately 1.6 x 0.7 cm in size with some ?? stable calcifications. This is more prominent than on prior studies and ?? spot compression view and possible ultrasound is recommended. ? MM/MM tomosynthesis screening BI ?? IMPRESSION: ?? Bilateral densities for further evaluation as described. ? ASSESSMENT: ? BI-RADS 0: Incomplete - Need Additional Imaging Evaluation ? RECOMMENDATION: ?? 1. Additional views of the bilateral breasts. ?? 2. Targeted ultrasound if warranted after review of the additional ?? views. ?? 3. Radiology department staff will contact the patient for additional ?? imaging. ? Dictated By: ?Aolnzo Marcelo MD ? Signed By: ?<Electronically signed by Alonzo Marcelo MD in OV> ?03/03/23 1732 ? DD/ 1610 ? TD/TT: ? Wind Energy Technician: SK ? Procedure Note Teddy, Image - 03/03/2023 [place] [facility] [address] [place] [address] [place] [address] Mammography Report Signed Patient: Carlos Miller#: [id number] : 1975Acct:[id number] Age/Sex: 47 / FADM Date: 02/28/23 Loc: HO.MAMMO Attending Dr: Abiola Youssef DO Ordering Physician: Maral Patel CNMResults: 0Inco mplete: Needs Additional Imaging Evaluation Date of Service: 02/28/23Follow Up: Additional Imagi ng Procedure(s): MM tomosynthesis screening BI Accession Number(s): [id number] cc: Maral Patel CNM EXAMINATION: MM SCREENING DIGITAL BREAST TOMOSYNTHESIS, BILATERAL CLINICAL INFORMATION: Screening. Asymptomatic. The lifetime risk of breast cancer based on the Tyrer-Cuzick Model is 11.9%. COMPARISON: Mammography: 11/29/2021 and studies dating back to 12/20/2016. TECHNIQUE: Digital breast tomosynthesis is performed in both the craniocaudal and mediolateral oblique views along with computer-aided detection (CAD). Synthesized 2D images are generated from the tomosynthesis. FINDINGS: The breasts are heterogeneously dense, which may obscure small masses (ACR BI-RADS breast composition Category c). There are some regions of architectural distortion seen bilaterally which appear to be stable and related to patient's reduction mammoplasty. Within the inferior lateral aspect of the left breast there is an enlarging 1 cm well-circumscribed density approximately 7 cm from the nipple for which spot compression and ultrasound evaluation is recommended. There are other circumscribed densities scattered within both breasts. About the central lateral aspect of the right breast there is a lobular contour density measuring approximately 1.6 x 0.7 cm in size with some stable calcifications. This is more prominent than on prior studies and spot compression view and possible ultrasound is recommended. MM/MM tomosynthesis screening BI IMPRESSION: Bilateral densities for further evaluation as described. ASSESSMENT: BI-RADS 0: Incomplete - Need Additional Imaging Evaluation RECOMMENDATION: 1. Additional views of the bilateral breasts. 2. Targeted ultrasound if warranted after review of the additional views. 3. Radiology department staff will contact the patient for additional imaging. Dictated By: Alonzo Marcelo MD Signed By: <Electronically signed by Alonzo Marcelo MD in OV> 03/03/23 1732 DD/ 1610 TD/TT: Wind Energy Technician: PUSHPA [facility] External Provider IMG BI PROCEDURES Edited Result - Final * XR Knee 3 Views Right (02/28/2023 12:55 PM EDT) Anatomical Region Laterality Modality Lower Extremities, Knee Right Radiogra [facility] Imaging 02/28/2023 12:5 5 PM EDT Narrative 03/12/2023 6:06 PM EDT ? [facility] ?[address] ?[place] [address] ?XRay Report ? Signed ? Patient: Miller,Iris ?MR#: [id number] ? : 1975 ?Acct:[id number] ? Age/Sex: 47 / F ?ADM Date: 02/28/23 ? Loc: HO.XRAY ? Attending Dr: Abiola Youssef DO ? Ordering Physician: Abiola Youssef DO ?? Date of Service: 02/28/23 ?? Procedure(s): XR knee RT 3V ?? Accession Number(s): [id number] ? cc: Abiola Youssef DO ? EXAMINATION: ?? XR BILATERAL KNEES ? CLINICAL INFORMATION: ?? Reason for Exam ACUTE PAIN ? COMPARISON: ?? Knee radiographs 06/26/2017 ? TECHNIQUE: ?? 3 views of the bilateral knees ? FINDINGS: ? RIGHT KNEE: ? No acute fracture or dislocation. ? Joint spaces are maintained. ? No joint effusion. ? Soft tissues are unremarkable. ? LEFT KNEE: ? No acute fracture or dislocation. ? Joint spaces are maintained. ? No joint effusion. ? Soft tissues are unremarkable. ? XR/XR knee RT 3V ?? IMPRESSION: ? * ??No acute osseous abnormality. ? Dictated By: ?Julianne Hernandez MD ? Signed By: ?<Electronically signed by Julianne Hernandez MD in OV> ?03/12/23 1803 ? DD/ 1255 ? TD/TT: ? Wind Energy Technician: ? Procedure Note Hank Espinal - 05/14/2023 [place] [id number] [place] [address] XRay Report Signed Patient: Cindy Miller#: [id number] : 1975Acct:[id number] Age/Sex: 47 / FADM Date: 02/28/23 Loc: HO.MICAELAAY Attending Dr: Abiola Youssef DO Ordering Physician: Abiola Youssef DO Date of Service: 02/28/23 Procedure(s): XR knee RT 3V Accession Number(s): [id number] cc: Abiola Youssef DO EXAMINATION: XR BILATERAL KNEES CLINICAL INFORMATION: Reason for Exam ACUTE PAIN COMPARISON: Knee radiographs 06/26/2017 TECHNIQUE: 3 views of the bilateral knees FINDINGS: RIGHT KNEE: No acute fracture or dislocation. Joint spaces are maintained. No joint effusion. Soft tissues are unremarkable. LEFT KNEE: No acute fracture or dislocation. Joint spaces are maintained. No joint effusion. Soft tissues are unremarkable. XR/XR knee RT 3V IMPRESSION: * No acute osseous abnormality. Dictated By: Julianne Hernandez MD Signed By: <Electronically signed by Julianne Hernandez MD in OV> 03/12/23 1803 DD/ 1255 TD/TT: Wind Energy Technician: [facility] External Provider IMG XR PROCEDURES Edited Result - Final * XR Knee 3 Views Left (02/28/2023 12:55 PM EDT) Anatomical Region Laterality Modality Lower Extremities, Knee Left Radiogra phic Imaging 02/28/2023 12:5 5 PM EDT Narrative 03/12/2023 6:06 PM EDT ? [facility] ?[address] ?[place] [address] ?XRay Report ? Signed ? Patient: Miller,Iris ?MR#: [id number] ? : 1975 ?Acct:[id number] ? Age/Sex: 47 / F ?ADM Date: 04/14/23 ? Loc: HO.XRAY ? Attending Dr: Abiola Youssef DO ? Ordering Physician: Abiola Youssef DO ?? Date of Service: 02/28/23 ?? Procedure(s): XR knee LT 3V ?? Accession Number(s): [id number] ? cc: Abiola Youssef DO ? EXAMINATION: ?? XR BILATERAL KNEES ? CLINICAL INFORMATION: ?? Reason for Exam ACUTE PAIN ? COMPARISON: ?? Knee radiographs 06/26/2017 ? TECHNIQUE: ?? 3 views of the bilateral knees ? FINDINGS: ? RIGHT KNEE: ? No acute fracture or dislocation. ? Joint spaces are maintained. ? No joint effusion. ? Soft tissues are unremarkable. ? LEFT KNEE: ? No acute fracture or dislocation. ? Joint spaces are maintained. ? No joint effusion. ? Soft tissues are unremarkable. ? XR/XR knee LT 3V ?? IMPRESSION: ? * ??No acute osseous abnormality. ? Dictated By: ?Julianne Hernandez MD ? Signed By: ?<Electronically signed by Julianne Hernandez MD in OV> ?03/12/233 ? DD/ 1255 ? TD/TT: ? Wind Energy Technician: ? Procedure Note Hank Espinal - 05/14/2023 [place] [address] XRay Report Signed Patient: Carlos Miller#: [id number] : 1975Acct:[id number] Age/Sex: 47 / FADM Date: 02/28/23 Loc: ADE Attending Dr: Abiola Youssef DO Ordering Physician: Abiola Youssef DO Date of Service: 02/28/23 Procedure(s): XR knee LT 3V Accession Number(s): [id number] cc: Abiola Youssef DO EXAMINATION: XR BILATERAL KNEES CLINICAL INFORMATION: Reason for Exam ACUTE PAIN COMPARISON: Knee radiographs 06/26/2017 TECHNIQUE: 3 views of the bilateral knees FINDINGS: RIGHT KNEE: No acute fracture or dislocation. Joint spaces are maintained. No joint effusion. Soft tissues are unremarkable. LEFT KNEE: No acute fracture or dislocation. Joint spaces are maintained. No joint effusion. Soft tissues are unremarkable. XR/XR knee LT 3V IMPRESSION: * No acute osseous abnormality. Dictated By: Julianne Hernandez MD Signed By: <Electronically signed by Julianne Hernandez MD in OV> 03/12/23 1803 DD/ 1255 TD/TT: Wind Energy Technician: [facility] External Provider IMG XR PROCEDURES Edited Result - Final documented in this encounter Visit Diagnoses Not on filedocumented in this encounter Care Teams Postage Machine Operator Relationship Specialty Start Date End Date Abiola Youssef DO [address] [place] [address] PCP - General Family Medicine 08/01/15 documented as of this encounter
--- OUTSIDE RECORDS SUMMARY | 2025-02-21 17:47 | XMS_ITS | Encounter Summary ---
Author Organization [employer] [facility] Address [address] [place] [address] 7 [place] [address] Care Team Providers Care Amusement Ride Inspector Name Role Phone Abiola Youssef DO Primary Care Provider [phone] Reason for Visit * Reason Comments Med Refill Encounter Details Date Type Department Care Team ([facility] st Contact Info) Description 01/07/2024 Refill [facility] MEDICINE [address] [place], [place] [phone] Abiola Youssef DO [address] [place] [address] Encounter for general adult medical examination without [...] findings documented in this encounter Care Teams Amusement Ride Inspector Relationship Specialty Start Date End Date Abiola Youssef DO [address] [place] [address] PCP - General Family Medicine 08/01/15 documented as of this encounter
--- OUTSIDE RECORDS SUMMARY | 2025-02-21 17:47 | XMS_ITS | Encounter Summary ---
Author Organization [employer] Address [address] [facility] 7t [place] [address] Care Team Providers Care Pv Design Engineer Name Role Phone SusanneAbiola henson Primary Care Provider + [phone] Reason for Visit * Reason Comments Med Refill Encounter Details Date Type Department Care Team ([facility] st Contact Info) Description 09/30/2024 Refill [facility] ADULT DENTAL [address] [place] [address] Edith Lee, DDS [address] [place] [address] Social History Tobacco Use Types Packs/Day Years [...] encounter Miscellaneous Notes * Telephone Encounter - Zbigniew Holcomb DMD - 09/30/2024 8:05 AM EST Please follow up with Dr. Rodriguez documented in this encounter Plan of Treatment Not on file documented as of this encounter Visit Diagnoses Not on filedocumented in this encounter Additional Health Concerns Assessment Noted Time PHQ-9 Depression Total Score: 4 02/19/20 24 11:15 AM EDT documented as of this encounter Care Teams Pv Design Engineer Relationship Specialty Start Date End Date Abiola Youssef DO [address] [place] [address] PCP - General Family Medicine 08/01/15 documented as of this encounter
--- OUTSIDE RECORDS SUMMARY | 2025-02-21 17:47 | XMS_ITS | Encounter Summary ---
Author Organization [employer] Address [address] [facility] 7t [place] [address] Care Team Providers Care Dial Buffer Name Role Phone Abiola Youssef DO Primary Care Provider + [phone] Reason for Visit * Reason Onset Date Comments PT1 09/16/2024 Encounter Details Date Type Department Care Team ([facility] st Contact Info) Description 09/16/2024 Telephone [facility] MEDICINE [address] [place], [place] [phone] Abiola Youssef DO [address] [place], [place] [phone] PT1 Social History Tobacco Use Types Packs/Day Years [...] encounter Miscellaneous Notes * Telephone Encounter - Rimma Watson - 09/16/2024 4:43 PM EDT Patient calling requesting PT1 Home Address verified: Y/N: Yes Provider name or facility name: [facility] Facility Address: [address] [place] [address] Escort needed: Y/N: Yes Do you have a wheelchair: Y/N: No If yes- Manual or electric: n/a Visits: 3 x year documented in this encounter Plan of Treatment Not on file documented as of this encounter Visit Diagnoses Not on filedocumented in this encounter Additional Health Concerns Assessment Noted Time PHQ-9 Depression Total Score: 4 02/19/20 24 11:15 AM EDT documented as of this encounter Care Teams Dial Buffer Relationship Specialty Start Date End Date Abiola Youssef DO [address] [place] [address] PCP - General Family Medicine 08/01/15 documented as of this encounter
--- OUTSIDE RECORDS SUMMARY | 2025-02-21 17:47 | XMS_ITS | Encounter Summary ---
Author Organization [employer] [facility] Address [address] [place] [address] [address] [place] [address] Care Team Providers Care Window/Distribution Clerk Name Role Phone Abiola Youssef DO Primary Care Provider [phone] Reason for Visit * Reason Comments Med Refill Encounter Details Date Type Department Care Team ([facility] st Contact Info) Description 12/22/2023 Refill [facility] CHC MED & PEDS [address] [place] [address] Abiola Youssef DO [address] [place] [address] Social History Tobacco Use Types Packs/Day Years [...] on filedocumented in this encounter Care Teams Window/Distribution Clerk Relationship Specialty Start Date End Date Abiola Youssef DO [address] [place], [place] [phone] PCP - General Family Medicine 08/01/15 documented as of this encounter
--- OUTSIDE RECORDS SUMMARY | 2025-02-21 17:47 | XMS_ITS | Encounter Summary ---
Author Organization [employer] Address [address] [facility] 7 [place] [address] Care Team Providers Care Car Seat Maker Name Role Phone Abiola Youssef DO Primary Care Provider + [phone] Reason for Visit * Reason Onset Date Comments PT1 01/14/2025 Encounter Details Date Type Department Care Team ([facility] st Contact Info) Description 01/14/2025 Telephone [facility] MEDICINE [address] [place], [place] [phone] Abiola Yuossef DO [address] [place], [place] [phone] PT1 Social History Tobacco Use Types Packs/Day [...] Access Q2 Not on file 12/28/2024 Comments Unknown Sex and Gender Information Value Date Recorded Sex Assigned at Female 09/16/2022 10:21 AM EDT Legal Sex Female 10:21 AM EDT Gender Identity Choose not to disclose 10:21 AM EDT Sexual Orientation Straight 09/16/2022 10 :21 AM EDT documented as of this encounter Miscellaneous Notes * Telephone Encounter - Tiffanie Camargo - 01/14/2025 10:25 AM EST Patient calling requesting PT1 Appointment January 19, 2025. Home Address verified: Y/N: Yes Provider name or facility name: [address] [place] [address] [facility] Escort needed: Y/N: Yes Do you have a wheelchair: Y/N: No If yes- Manual or electric: N/A Visits: (1x monthly) documented in this encounter Plan of Treatment Not on file documented as of this encounter Visit Diagnoses Not on filedocumented in this encounter Additional Health Concerns Assessment Noted Time PHQ-9 Depression Total Score: 4 02/19/20 24 11:15 AM EDT documented as of this encounter Care Teams Car Seat Maker Relationship Specialty Start Date End Date Abiola Youssef DO [address] [place] [address] PCP - General Family Medicine 08/01/15 documented as of this encounter
--- OUTSIDE RECORDS SUMMARY | 2025-02-21 17:47 | XMS_ITS | Encounter Summary ---
Author Organization [employer] [facility] Address [address] [place] [address] [address] [place] [address] Care Team Providers Care Practice Assistant Name Role Phone Abiola Youssef DO Primary Care Provider [phone] Reason for Visit * Reason Onset Date Comments Med Refill 01/07/2024 Encounter Details Date Type Department Care Team (Late st Contact Info) Description 01/07/2024 Refill [facility] MEDICINE [address] [place], [place] [phone] Abiola Youssef DO [address] [place] [address] Social History Tobacco Use Types Packs/Day Years [...] on filedocumented in this encounter Care Teams Practice Assistant Relationship Specialty Start Date End Date Abiola Youssef DO [address] [place], [place] [phone] PCP - General Family Medicine 08/01/15 documented as of this encounter
--- OUTSIDE RECORDS SUMMARY | 2025-02-21 17:47 | XMS_ITS | Encounter Summary ---
Author Organization [employer] Address [address] [facility] 7t [place] [address] Care Team Providers Care Awning Craftsperson Name Role Phone SusanneAbiola henson Primary Care Provider + [phone] Reason for Visit * Reason Comments Med Refill Encounter Details Date Type Department Care Team ([facility] st Contact Info) Description 05/25/2024 Refill [facility] ADULT DENTAL [address] [place] [address] Edith Lee, DDS [address] [place] [address] Social History Tobacco Use Types Packs/Day Years [...] Telephone Encounter - Edith Lee DDS - 05/26/2024 8:07 AM EDT Approving, but needs appt for additional refills. documented in this encounter Plan of Treatment Not on file documented as of this encounter Visit Diagnoses Not on filedocumented in this encounter Additional Health Concerns Assessment Noted Time PHQ-9 Depression Total Score: 4 02/19/20 24 11:15 AM EDT documented as of this encounter Care Teams Awning Craftsperson Relationship Specialty Start Date End Date Abiola Youssef DO [address] [place] [address] PCP - General Family Medicine 08/01/15 documented as of this encounter
--- OUTSIDE RECORDS SUMMARY | 2025-02-21 17:47 | XMS_ITS | Encounter Summary ---
Author Organization [employer] [facility] Address [address] [place] [address] 7t [place] [address] Care Team Providers Care Beef Cattle Specialist Name Role Phone Abiola Youssef DO Primary Care Provider Encounter Details Date Type Department Care Team (Late st Contact Info) Description 01/20/2023 Orders Only [facility] MEDICINE [address] [place] [address] Nan Alexander LPN Social History Tobacco Use Types Packs/Day [...] on filedocumented in this encounter Care Teams Beef Cattle Specialist Relationship Specialty Start Date End Date Abiola Youssef DO [address] [place] [address] PCP - General Family Medicine 08/01/15 documented as of this encounter
--- OUTSIDE RECORDS SUMMARY | 2025-02-21 17:47 | XMS_ITS | Clinical Summary ---
Author Organization [facility], Address [address] [place] [address] Phone Care Team Providers Care Crop Research Scientist Name Role Phone Unavailable Primary Care Provider Unavailabl e Allergies No known active allergies Medications hydroCHLOROthia zide 25 MG tablet Take 25 mg by mouth 1 (one) time each day Active senna (SENOKOT) 8.6 MG tablet Take 1 tablet by mouth 1 (one) time each day Active docusate sodium (COLACE) 100 MG capsule Take 100 mg by mouth in the morning and 100 mg in the evening. Active amitriptyline (ELAVIL) 25 MG tablet Take 25 mg by mouth every night Active cholecalciferol (VITAMIN D-3) 1.25 MG (54750 UT) capsule Take 50,000 Units by mouth 1 (one) time per week Active lisinopril (PRINIVIL,ZESTR IL) 30 MG tablet Take 30 mg by mouth 1 (one) time each day Active Melatonin 5 MG tablet Take by mouth Active metFORMIN (GLUCOPHAGE) 500 MG tablet Take 500 mg by mouth in the morning and 500 mg in the evening. Take with meals. Active naproxen (NAPROSYN) 500 MG tablet Take 500 mg by mouth in the morning and 500 mg in the evening. Take with meals. Active loratadine (CLARITIN) 10 MG tablet Take 10 mg by mouth 1 (one) time each day Active Multiple Vitamin (multivitamin) capsule Take 1 capsule by mouth 1 (one) time each day Active pantoprazole (PROTONIX) 40 MG EC tablet Take 40 mg by mouth 1 (one) time each day before breakfast Do not crush, chew, or split. Active Multiple Vitamins-Minera ls (CERTAVITE/ANTI OXIDANTS PO) Take by mouth Act aimee oxyCODONE (Roxicodone) 5 MG immediate release tablet Take 1 tablet (5 mg total) by mouth every 4 (four) hours if needed for moderate pain for up to 5 doses 5 tablet Active Active Problems Problem Noted Date Diagnosed Date Back pain 07/04/2023 Chronic depression 07/04/2023 Anxiety 07/04/2023 Anemia 07/04/2023 Adenocarcinoma of sigmoid colon 06/30/2023 Hypertension 06/30/2023 Diabetes mellitus 06/30/2023 Migraine 06/30/2023 Gastroesophageal reflux disease 06/30/2023 Social History Tobacco Use Types Packs/Day Years Used Date Smoking Tobacco: Never Smokeless Tobacco: Never Alcohol Use Standard Drinks/Week Comments Never 0 (1 standard drink = 0.6 oz pur e alcohol) Comments Unknown Sex and Gender Information Value Date Recorded Sex Assigned at Not on file Legal Sex Female 11:24 AM EDT Gender Identity Not on file Sexual Orientation Not on file Last Filed Vital Signs Vital Sign Reading Time Taken Comments Blood Pressure 117/82 07/04/2023 2:25 PM EDT Pulse 72 07/04/2023 2:25 PM EDT Temperature 36.8 ??C (98.2 ??F) 07/04/2023 2:25 PM ED T Respiratory Rate 18 07/04/2023 2:25 PM EDT Oxygen Saturation 97% 07/04/2023 2:25 PM EDT Inhaled Oxygen Concentration - - Weight 90.7 kg (200 lb) 07/04/2023 2:25 PM EDT Height 160 cm (5' 3 ) 07/04/2023 2:25 PM EDT Body Mass Index 35.43 07/04/2023 2:25 PM EDT Plan of Treatment Health Maintenance Due Date Last Done Comments Pneumococcal Vaccine: Pediat rics (0 to 5 Years) and At-Risk Patients (6 to 64 Years) (1 of 2 - PCV) 1982 Hepatitis B Vaccine (1 of 3 - 19+ 3-dose series) 1995 Diabetes: Hemoglobin A1C 06/30/2023 Diabetes: Ophthalmology Exam 06/30/2023 Diabetes: Pedal Pulse Checked 06/30/2023 Diabetes: Sensory Foot Exam 06/30/2023 Diabetes: Visual Foot Exam 06/30/2023 Influenza Vaccine (Season Ended) 2025 09/16/2022, 09/10/2021, 08/13/2019, Additional history exists Insurance [place]ICAID [place]
--- OUTSIDE RECORDS SUMMARY | 2025-02-21 17:47 | XMS_ITS | Encounter Summary ---
Author Organization [employer] Address [address] [place] [address] Care Team Providers Care Chair And Couch Maker Name Role Phone Abiola Youssef DO Primary Care Provider [phone] Encounter Details Date Type Department Care Team (Late st Contact Info) Description 12/23/2022 Orders Only [facility] [address] [place] [address] Abiola Farnsworth LPN Social History Tobacco Use [...] on filedocumented in this encounter Care Teams Chair And Couch Maker Relationship Specialty Start Date End Date Abiola Youssef DO [address] [place] [address] PCP - General Family Medicine 08/01/15 documented as of this encounter
--- OUTSIDE RECORDS SUMMARY | 2025-02-21 17:47 | XMS_ITS | Encounter Summary ---
Author Organization [employer] Address [address] [facility] [address] [place] [address] Care Team Providers Care Senior Compliance Officer Name Role Phone Abiola Youssef DO Primary Care Provider + [phone] Reason for Visit * Reason Comments Med Refill Encounter Details Date Type Department Care Team ([facility] st Contact Info) Description 03/10/2024 Refill [facility] MED[facility] [address] [place], [place] [phone] Abiola Youssef DO [address] [place] [address] Social History Tobacco Use Types Packs/Day Years [...] documented as of this encounter Care Teams Senior Compliance Officer Relationship Specialty Start Date End Date Abiola Youssef DO [address] [place] [phone] PCP - General Family Medicine 08/01/15 documented as of this encounter
--- OUTSIDE RECORDS SUMMARY | 2025-02-21 17:47 | XMS_ITS | Encounter Summary ---
Author Organization [employer] Address [address] [facility] [address] [place] [address] Care Team Providers Care Bible Worker Name Role Phone Abiola Youssef DO Primary Care Provider + [phone] Reason for Visit * Reason Onset Date Comments PT-1 10/21/2024 Encounter Details Date Type Department Care Team ([facility] st Contact Info) Description 10/21/2024 Telephone [facility] MEDICINE [address] [place], [place] [phone] Abiola Youssef DO [address] [place], [place] [phone] PT-1 Social History Tobacco Use Types Packs/Day Years [...] encounter Miscellaneous Notes * Telephone Encounter - Jeremie Duncan - 10/21/2024 8:27 AM EST Patient calling requesting PT1 Home Address verified: Y/N: Yes Provider name or facility name: [address] Escort needed: Y/N: Yes Do you have a wheelchair: Y/N: No If yes- Manual or electric: No Visits: (2) documented in this encounter Plan of Treatment Not on file documented as of this encounter Visit Diagnoses Not on filedocumented in this encounter Additional Health Concerns Assessment Noted Time PHQ-9 Depression Total Score: 4 02/19/20 24 11:15 AM EDT documented as of this encounter Care Teams Bible Worker Relationship Specialty Start Date End Date Abiola Youssef DO [address] [place] [address] PCP - General Family Medicine 08/01/15 documented as of this encounter
--- OUTSIDE RECORDS SUMMARY | 2025-02-21 17:48 | XMS_ITS | Encounter Summary ---
Author Organization [employer] Address [address] [facility] [address] [place] [address] Care Team Providers Care Retirement Village Manager Name Role Phone Abiola Youssef DO Primary Care Provider + [phone] Encounter Details Date Type Department Care Team (Late st Contact Info) Description 03/18/2023 Telephone [facility] MEDICINE [address] [place], [place] [phone] Abiola Youssef DO [address] [place], [place] [phone] Social History Tobacco Use Types Packs/Day Years Used Date Smoking Tobacco: Never Smokeless Tobacco: Never Comments Unknown Sex and Gender Information Value Date Recorded Sex Assigned at Female 09/16/2022 10:21 AM EDT Legal Sex Female 10:21 AM EDT Gender Identity Choose not to disclose 10:21 AM EDT Sexual Orientation Straight 09/16/2022 10 :21 AM EDT COVID-19 Exposure Response Date Recorded In the last 10 days, have yo u been in contact with someone who was confirmed or suspected to have Coronavirus/COVID-19? No / Unsure 02/28/2023 10:29 AM EDT documented as of this encounter Miscellaneous Notes * Telephone Encounter - Macie Barlow RN - 03/18/2023 4:06 PM EDT Triage call with [employer] Reservationist ID [id number] Pt reports abdominal pain above belly button. Pt does have dx of chronic gastric reflux. Pain comesand goes and has been increased for the last week. Pt doesn't use tums , mylanta or maalox for this. Pt is advised to come to [facility] today to be seen and Pt declines reports is at work right now. Pt denies eating any fatty, fried foods. Pt has been drinking sprite recently to help expel gas. Home care reviewed with Pt . Pt declined offered apt with PCP. Pt reports will come to [facility] at some point . Protocol Used: Abdominal Pain - Upper (Adult) Protocol-Based Disposition: See in Office or Video Visit within 2 Weeks Video visit not offered Positive Triage Question: * Intermittent pains shoot into chest, with sour taste in mouth * All higher-acuity triage questions were negative Care Advice Discussed: * Reassurance and Education - Stomach Pain * Drink Clear Fluids * Diet * Antacid Medicine * Avoid Aspirin and NSAIDs * Food Recommendations to Reduce Reflux * Expected Course - Abdominal Pain * Reasons To Call Back - Abdomen pain is constant and present for more than 2 hours. - You become worse documented in this encounter Plan of Treatment Not on file documented as of this encounter Visit Diagnoses Not on filedocumented in this encounter Care Teams Retirement Village Manager Relationship Specialty Start Date End Date Abiola Youssef DO [address] [place] [id number] PCP - General Family Medicine 08/01/15 documented as of this encounter
--- OUTSIDE RECORDS SUMMARY | 2025-02-21 17:48 | XMS_ITS | Encounter Summary ---
Author Organization [facility] [facility] [facility] Address [address] [facility] [address] [place] [address] Care Team Providers Care Pastry Cook Apprentice Name Role Phone Abiola Youssef DO Primary Care Provider + [phone] Reason for Visit * Reason Onset Date Comments triage 03/18/2023 Encounter Details Date Type Department Care Team ([facility] st Contact Info) Description 03/18/2023 Telephone [facility] MEDICINE [address] [place], [place] [phone] Abiola Youssef DO [address] [place] [address] triage Social History Tobacco Use Types Packs/Day Years [...] Encounter - Macie Barlow RN - 03/18/2023 2:21 PM EDT Triage call x3 with [employer] ID [id number] Pt didn't answer , left message to call [facility] triage line at [phone]. * Telephone Encounter - Emily Mauricio - 03/18/2023 1:32 PM EDT Patient calling to report heartburn . Patient speaks Bengali. Advised triage nurse will call patient back. documented in this encounter Plan of Treatment Not on file documented as of this encounter Visit Diagnoses Not on filedocumented in this encounter Care Teams Pastry Cook Apprentice Relationship Specialty Start Date End Date Abiola Youssef DO [address] [place] [id number] PCP - General Family Medicine 08/01/15 documented as of this encounter
--- OUTSIDE RECORDS SUMMARY | 2025-02-21 17:48 | XMS_ITS | Encounter Summary ---
Author Organization [facility] Address [address] [facility] [address] [place] [address] Care Team Providers Care Voucher Clerk Name Role Phone Abiola Youssef DO Primary Care Provider + [phone] Encounter Details Date Type Department Care Team (Late st Contact Info) Description 08/15/2023 Abstract [facility] MEDICINE [address] [place], [place] [phone] Abiola Youssef DO [address] [place], [place] [phone] Social History Tobacco Use Types Packs/Day Years [...] Procedure Name Priority Date/Time Associated Diagnosis Comments PAP/HPV Routine 09/29/2020 documented in this encounter Results * Pap Smear (09/29/2020) Pap Negative for intraephithelial lesion or malignancy Negative for intraephithelial lesion or malignancy, Other HPV Undetected us Historical Provider HEALTH MAINTENANCE Final Result documented in this encounter Visit Diagnoses Not on filedocumented in this encounter Care Teams Voucher Clerk Relationship Specialty Start Date End Date Abiola Youssef DO [address] [place] [address] PCP - General Family Medicine 08/01/15 documented as of this encounter
--- OUTSIDE RECORDS SUMMARY | 2025-02-21 17:48 | XMS_ITS | Encounter Summary ---
Author Organization [employer] Address [address] [facility] [address] [place] [address] Care Team Providers Care Stock Supervisor Name Role Phone Abiola Youssef DO Primary Care Provider + [phone] Reason for Visit * Reason Comments Med Refill Encounter Details Date Type Department Care Team ([facility] st Contact Info) Description 02/03/2025 Refill [facility] MED[facility]INE [address] [place], [place] [phone] Abiola Youssef DO [address] [place], [place] [phone] Pain Social History Tobacco Use Types Packs/Day Years [...] as of this encounter Visit Diagnoses Diagnosis Pain Generalized pain documented in this encounter Additional Health Concerns Assessment Noted Time PHQ-9 Depression Total Score: 4 02/19/20 24 11:15 AM EDT documented as of this encounter Care Teams Stock Supervisor Relationship Specialty Start Date End Date Abiola Youssef DO [address] [place] [address] PCP - General Family Medicine 08/01/15 documented as of this encounter
--- OUTSIDE RECORDS SUMMARY | 2025-02-21 17:48 | XMS_ITS | Clinical Summary ---
Author Organization [employer] Address [address] [place] [address] 7[address] [place] [address] Care Team Providers Care Social Human Services Assistants Name Role Phone JulyAbiola slater Primary Care Provider [phone] Allergies No known active allergies Medications aspirin-acetaminoph en-caffeine (Excedrin Migraine) 250-250-65 MG tablet Active norethindrone (Micronor) 0.35 MG tablet TOME MARTI TABLETA POR V A ORAL TODOS LOS D 023 Active Diclofenac Sodium 1 % gel Apply 2 g topically if needed in the morning and at bedtime (pain). 150 g 3 023 Active D3-1000 25 MCG (1000 UT) capsule TOME MARTI CAPSULA TODOS LOS KUMARI 90 capsule 3 023 Active polyvinyl alcohol (Liquifilm Tears) 1.4 % ophthalmic solution INSTILL 1 DROP IN EACH EYE 2-3 TIMES A DAY 15 mL 11 023 Active Blood Glucose Monitoring Suppl (ONE TOUCH ULTRA 2) w/Device kitIndications:Type 2 diabetes mellitus without complication, without long-term current use of insulin ([facility]) Use to test blood sugar once daily 1 kit 023 Active OneTouch Delica Lancets 33G miscIndications:Typ e 2 diabetes mellitus without complication, without long-term current use of insulin ([facility]) Use to test blood sugar once daily 100 each 3 023 Active Blood Glucose Monitoring Suppl (FreeStyle Lite) w/Device kit 1 each in the morning. USE TO TEST BLOOD SUGAR ONCE A DAY 1 kit 023 Active Multiple Vitamin (One-Daily Multi-Vitamin) tablet TAKE 1 TABLET BY MOUTH EVERY DAY WITH FOOD 90 tablet 3 024 Active glucose blood (FREESTYLE LITE) test stripIndications:Pr ediabetes USE TO TEST BLOOD SUGAR ONCE A DAY 100 each 5 024 Active Multiple Vitamins-Minerals (CertaVite/Antioxid ants) tablet TAKE 1 TABLET BY MOUTH EVERY DAY WITH FOOD 90 tablet 3 024 Active chlorhexidine (Peridex) 0.12 % solution USE 15 ML IN THE MOUTH OR THROAT IF NEEDED (FOR MOUTHWASH 15 ML FOR 30 SECONDS, SWISH AND SPIT DO NOT SWALLOW FOR UP TO 14 DAYS. 473 mL 024 Active hydroCHLOROthiazide (HYDRODiuril) 25 MG tabletIndications:H ypertension, unspecified type TAKE 1 TABLET BY MOUTH EVERY MORNING 90 tablet 1 024 Active Alcohol Swabs (Alcohol Prep) 70 % padsIndications:Typ e 2 diabetes mellitus without complication, without long-term current use of insulin (CMS/HCC) USE TO TEST BLOOD SUGAR ONCE DAILY 100 each 5 024 Active metFORMIN XR (Glucophage-XR) 500 MG 24 hr tabletIndications:T ype 2 diabetes mellitus without complication, without long-term current use of insulin (CMS/HCC) TAKE 2 TABLETS BY MOUTH EVERY DAY 180 tablet 3 024 Active pantoprazole (ProtoNix) 40 MG EC tabletIndications:C hronic gastroesophageal reflux disease TAKE 1 TABLET BY MOUTH EVERY MORNING. DO NOT CRUSH, CHEW, OR SPLIT. 90 tablet 3 024 Active lisinopril 10 MG tablet TOME 1 TABLETA POR VIA ORAL TODOS LOS KUMARI EN LA MANANA 90 tablet 025 Active Lancets (OneTouch Delica Plus [id number]) misc USE TO TEST BLOOD SUGAR ONCE A DAY 100 each 5 025 Active loratadine (Claritin) 10 MG tabletIndications:S easonal allergies TAKE 1 TABLET BY MOUTH EVERY DAY 90 tablet 1 025 Active albuterol (Ventolin HFA) 108 (90 Base) MCG/ACT inhaler INHALE 2 PUFFS EVERY 4 (FOUR) HOURS IF NEEDED FOR WHEEZING OR SHORTNESS OF BREATH. 6.7 g 1 025 Active oxyCODONE (Roxicodone) 5 MG immediate release tablet Take 5 mg by mouth. 025 Active omeprazole (PriLOSEC) [address] capsule TOME 1 C PSULA BY MOUTH DAILY,INSTR: CHEMOTHERAPY INDUCED GASTRITIS DO NOT CRUSH OR CHEW 025 Active baclofen (Lioresal) 10 MG tabletIndications:M uscle spasm TOME 1 TABLETA POR VIA ORAL CHICA VECES AL RAI 60 tablet 025 Active fluticasone (Flonase) 50 MCG/ACT nasal sprayIndications:Se asonal allergic rhinitis, unspecified trigger SPRAY 2 SPRAYS INTO EACH NOSTRIL EVERY DAY 48 mL 025 Active melatonin 5 MG tabletIndications:I nsomnia, unspecified type TAKE 1 TO 2 TABLETS BY MOUTH AT BEDTIME IF NEEDED FOR INSOMNIA 180 tablet 1 025 Active naproxen (Naprosyn) 500 MG tabletIndications:P ain TOME 1 TABLETA POR VIA ORAL DOS VECES AL RAI 30 tablet 025 Active amitriptyline (Elavil) 25 MG tabletIndications:N onintractable chronic migraine TAKE 1 TABLET BY MOUTH AT BEDTIME 30 tablet 11 025 Active amitriptyline (Elavil) 25 MG tabletIndications:N onintractable chronic migraine TAKE 1 TABLET BY MOUTH AT BEDTIME 30 tablet 11 024 2024 Discontinued fluticasone (Flonase) 50 MCG/ACT nasal sprayIndications:Se asonal allergic rhinitis, unspecified trigger SPRAY 2 SPRAYS INTO EACH NOSTRIL EVERY DAY 48 mL 1 024 2024 Discontinued melatonin 5 MG tabletIndications:I nsomnia, unspecified type TAKE 1 TO 2 TABLETS BY MOUTH AT BEDTIME IF NEEDED FOR INSOMNIA 180 tablet 1 024 2024 Discontinued Enoxaparin Sodium 40 MG/0.4ML solution prefilled syringe Inject 40 mg under the skin 1 (one) time each day at the same time. 025 2024 baclofen (Lioresal) 10 MG tabletIndications:M uscle spasm TOME 1 TABLETA POR VIA ORAL CHICA VECES AL RAI 60 tablet 025 2024 Discontinued naproxen (Naprosyn) 500 MG tabletIndications:P ain TOME 1 TABLETA POR VIA ORAL DOS VECES AL RAI 30 tablet 025 2024 Discontinued Active Problems Problem Noted Date Diagnosed Date Adenocarcinoma of colon metastatic to liver 05/2025 Retained dental root 10/04/2024 Dental caries 06/21/2024 Periodontal disease 06/21/2024 Anxiety 07/04/2023 09/19/2023 Adenocarcinoma of sigmoid colon 06/30/2023 09/19/2023 Essential hypertension 02/28/2023 Allergic rhinitis 02/28/2023 Chronic gastroesophageal reflux disease 02/15/20 16 Chronic constipation 12/11/2015 Prediabetes 12/11/2015 History of anxiety 12/11/2015 Anemia 12/11/2015 Chronic migraine 12/11/2015 BMI 31.0-31.9,adult 12/11/2015 History of depression 12/11/2015 Vitamin D deficiency 12/11/2015 Resolved Problems Problem Noted Date Diagnosed Date Resolved Date Malignant neoplasm of descending colon 09/14/2024 02/08/2025 Encounters Date Type Department Care Team Description 02/16/2025 Refill [facility] [address] [place] [phone] Abiola Youssef DO Nonintractable chronic migraine 02/11/2025 Refill [facility] [address] [place] [phone] Abiola Youssef DO Insomnia, unspecified type; Chronic gastroesophageal reflux disease; Pain 02/11/2025 Telephone [facility] [address] [place] [phone] Abiola Youssef DO Results 02/11/2025 Refill [facility] [address] [place] [phone] Abiola Youssef DO Seasonal allergic rhinitis, unspecified trigger 02/09/2025 Refill [facility] [address] [place] [phone] Abiola Youssef DO Muscle spasm 02/08/2025 9:45 AM EDT Office Visit [facility] [address] [place] [phone] Abiola Youssef DO Essential hypertension (Primary Dx); Prediabetes; Chronic migraine; Chronic gastroesophageal reflux disease; Chronic constipation; Adenocarcinoma of colon metastatic to liver (CMS/HCC); Healthcare maintenance; Encounter for immunization 02/08/2025 Travel 02/03/2025 Refill [facility] [address] [place] [address] Abiola Youssef DO Pain 01/31/2025 10:00 AM EDT Office Visit [facility] OPTOMET[facility] [address] [place] [address] Ousmane, Misty, OD Suspicious optic nerve cupping of both eyes (Primary Dx); Chorioretinal scar, right; White without pressure of peripheral retina of right eye; Presbyopia 01/31/2025 Patient Outreach [facility] [address] [place] [address] Abiola Youssef DO Pre-visit Planning (SDOH screening completed on 12/28/2024) 01/31/2025 Travel 01/28/2025 Population Health Risk Score [facility] () Department [address] [place] [address] [phone] Provider, Population Health Generic 01/20/2025 Refill [facility] [address] [place] [address] Abiola Youssef DO Muscle spasm; Pain 01/14/2025 Patient Outreach [facility] [address] [place] [address] Abiola Youssef DO Care Coordination (CHW outreach for SDOH PT-1 -referral completed /) 01/14/2025 Telephone [facility] [address] [place] [address] Abiola Youssef DO PT1 01/10/2025 1:15 PM EST Office Visit [facility] [address] [facility] [place] [phone] Kasandra Brown FNP Adenocarcinoma of sigmoid colon (CMS/HCC) (Primary Dx); S/P left colectomy; Postoperative wound dehiscence, initial encounter; Other chest pain 01/10/2025 Travel 01/08/2025 Refill [facility] [address] [place] [address] Abiola Youssef DO 12/30/2024 Refill [facility] [address] [place] [address] Abiola Youssef DO Pain; Muscle spasm 12/30/2024 Travel 12/28/2024 Patient Outreach [facility] [address] [place] [address] Abiola Youssef DO Transition Of Care (Tcm) (HDF scheduled and SDOH screening negative and Tobacco screening negative) 12/28/2024 Patient Outreach [facility] [address] [place] [address] Abiola Youssef DO Transition Of Care (Tcm) (HDF unscheduled LVM ) 12/27/2024 Refill [facility]EDS [address] [place] [address] Abiola Youssef DO 12/22/2024 Refill [facility] [address] [place] [address] Abiola Youssef DO Seasonal allergies 12/13/2024 Refill [facility] [address] [place] [address] Abiola Youssef DO Muscle spasm; Pain 12/13/2024 Refill [facility] [address] [place] [address] Joelle Piña MD 12/08/2024 2:00 PM EST Office Visit [facility] ADULT DENTAL [address] [place] [address] Ocampo-Alcaraz, Edith, DDS Teeth missing (Primary Dx) 11/30/2024 8:30 AM EST Office Visit [facility] AD[facility] DENTAL [address] [place] [address] Ocampo-Alcaraz, Edith, DDS Teeth missing (Primary Dx) 11/23/2024 11:00 AM EST Office Visit [facility] AD[facility] DENT[facility] [address] [place] [address] Ocampo-Alcaraz, Edith, DDS Teeth missing (Primary Dx) from Last 3 Months Immunizations Name Administration Dates Next Due Influenza injectable quadriv alent IIV4 with preservative 08/31/2018,01/01/2018,08/29/2015 Influenza injectable quadriv alent preservative free 09/19/2023,09/16/2022,09/10/2021,2018,12/20/2016 Influenza, IIV3, injectable 08/15/2014 Influenza, Split (incl. pedro fied surface antigen) 08/30/2013,09/10/2012 Influenza, seasonal, injecta ble, preservative free 02/08/2025 Pfizer Covid-19 Vaccine 12+ 02/08/2025 Pneumococcal Conjugate PCV 20 09/19/2023 Tdap 09/19/2023,01/12/2013 Family History Medical History Relation Name Comments Diabetes Brother HIV Father Asthma Father's Sister Diabetes Father's Sister Hypertension Father's Sister Diabetes Maternal Grandmother Asthma Mother HIV Mother Relation Name Status Comments Brother Father Father's Sister Maternal Grandmother Mother Social History Tobacco Use Types Packs/Day Years Used Date Smoking Tobacco: Never Smokeless Tobacco: Never Tobacco Cessation:Counseling Given: Not Answered Alcohol Use Standard Drinks/Week Comments Never 0 [...] Orientation Straight 09/16/2022 10 :21 AM EDT Last Filed Vital Signs Vital Sign Reading Time Taken Comments Blood Pressure 118/60 02/08/2025 10:02 AM EDT Pulse 80 02/08/2025 10:02 AM EDT Temperature 36.2 ??C (97.2 ??F) 02/08/2025 10:02 AM E DT Respiratory Rate 21 02/08/2025 10:02 AM EDT Oxygen Saturation 99% 02/08/2025 10:02 AM EDT Inhaled Oxygen Concentration - - Weight 92.1 kg (203 lb) 02/08/2025 10:02 AM EDT Height 160 cm (5' 3 ) 02/08/2025 10:02 AM EDT Body Mass Index 35.96 02/08/2025 10:02 AM EDT Plan of Treatment Health Maintenance Due Date Last Done Comments Dental Prophylaxis 1976 Diabetes: Foot Exam 1986 Alcohol/Substance Use Screening 1988 Family Planning (PISQ) 1991 Hepatitis A Vaccines (1 of 2 - Risk 2-dose series) 1995 Hepatitis B Vaccines (1 of 3 - 19+ 3-dose series) 1995 Dental Oral Exam 09/23/2024 03/22/2024 Depression Screening 02/18/2025 02/19/2024, 02/19/20 Dental X-Ray: Bitewings 03/23/2025 03/22/2024 Diabetes: Hemoglobin A1C 08/11/2025 025, 02/19/2024, 09/16/2022, Additional history exists Cervical Cancer Screening 09/29/2025 HPV/Cotest 09/29/2025 09/29/2020, 09/17, 09/29/2020 Pap Smear 09/29/2025 09/29/2020 SDOH Screening 12/28/2025 12/28/2024 Diabetes: Urine Protein Screening 02/08/2026 02/08/2025, 09/16/2022, 09/11/2021, Additional history exists Lipid Panel 02/08/2026 02/08/2025, 040 02/2024, 09/16/2022, Additional history exists Tobacco Screening 02/08/2026 02/08/2025 Mammogram 03/02/2026 03/02/2024, 0 07/2023, 03/25/2023, Additional history exists Zoster Vaccines (1 of 2) 2026 Eye Exam 01/31/2027 01/31/2025, 01/15, 01/31/2025, Additional history exists Dental X-Ray: Full Mouth 03/23/2027 03/22/2024 DTaP/Tdap/Td Vaccines (3 - Td or Tdap) 09/19/2033 09/19/2023, 01/12/2013 RSV Patients and Patients Aged 60 years or older (1 - 1-dose 75+ series) 2051 Pneumococcal Vaccine: Pediatrics (0 to 5 Years) and At-Risk Patients (6 to 49) Years) Completed 09/19/2023 COVID-19 Vaccine Completed 02/08/2025, 06/2024, 09/16/2022, Additional history exists HIV Screening Completed 02/08/2025, 04/0 02/2024, 09/16/2022, Additional history exists Hepatitis C Screening Completed 02/08/2025 , 02/19/2024, 09/16/2022, Additional history exists Influenza Vaccine Completed 02/08/2025, , 09/16/2022, Additional history exists HIB Vaccines Aged Out No longer eligi ble based on patient's age to complete this topic HPV Vaccines Aged Out No longer eligi ble based on patient's age to complete this topic IPV Vaccines Aged Out No longer eligi ble based on patient's age to complete this topic Meningococcal Vaccine Aged Out No kena alejandrina eligible based on patient's age to complete this topic RSV under 20 months Aged Out No longe r eligible based on patient's age to complete this topic Rotavirus Vaccines Aged Out No longer eligible based on patient's age to complete this topic Procedures Procedure Name Priority Date/Time Associated Diagnosis Comments HEPATITIS B CORE AB TOTAL Routine 02/08/2025 12:44 PM EDT Essential hypertension HEPATITIS A ANTIBODY, TOTAL Routine 02/08/2025 12:44 PM EDT Essential hypertension HEPATITIS B SURFACE ANTIBODY, QUALITATIVE Routine 02/08/2025 12:44 PM EDT Essential hypertension RPR (MONITOR) W/REFL TITER Routine 02/08/2025 12:44 PM EDT Essential hypertension HEPATITIS C AB W/REFL TO HCV RNA, QN, PCR Routine 02/08/2025 12:44 PM EDT Essential hypertension HIV 1/2 ANTIGEN/ANTIBODY, FOURTH GENERATION W/RFL Routine 02/08/2025 12:44 PM EDT Essential hypertension HEPATITIS B SURFACE ANTIGEN, EIA Routine 02/08/2025 12:44 PM EDT Essential hypertension ALBUMIN, RANDOM URINE W/CREATININE Routine 02/08/2025 10:44 AM EDT Essential hypertension CBC Routine 02/08/2025 10:44 AM EDT Essential hypertension BASIC METABOLIC PANEL Routine 02/08/2025 10:44 AM EDT Essential hypertension HEMOGLOBIN A1C Routine 02/08/2025 10:44 AM EDT Essential hypertension HEPATIC FUNCTION PANEL Routine 02/08/2025 10:44 AM EDT Essential hypertension TSH Routine 02/08/2025 10:44 AM EDT Essential hypertension LIPID PANEL, STANDARD Routine 02/08/2025 10:44 AM EDT Essential hypertension VITAMIN D,25-OH,TOTAL,IA Routine 02/08/2025 10:44 AM EDT Essential hypertension T4, FREE Routine 02/08/2025 10:44 AM EDT Essential hypertension CHLAMYDIA/N. GONORRHOEAE RNA, TMA, UROGENITAL Routine 02/08/2025 10:44 AM EDT Essential hypertension OCT, OPTIC NERVE - OU - BOTH EYES Routine 01/31/2025 11:11 AM EDT Suspicious optic nerve cupping of both eyes ECG 12-LEAD Routine 01/11/2025 1:55 PM EST Other chest pain CASE PRESENTATION, DETAILED AND EXTENSIVE TREATMENT PLANNING Routine 12/08/2024 2:00 PM EST Teeth missing 18,19,20,25,24,26,30, 31 MANDIBULAR PARTIAL DENTURE - RESIN BASE (INCLUDING, RETENTIVE/CLASPING MATERIALS, RESTS, AND TEETH) Routine 12/08/2024 2:00 PM EST Teeth missing 2,3,4,14,15,13 MAXILLARY PARTIAL DENTURE - CAST METAL FRAMEWORK WITH RESIN DENTURE BASES (INCLUDING RETENTIVE/CLASPING MATERIALS, RESTS AND TEETH) Routine 12/08/2024 2:00 PM EST Teeth missing WAX TRY IN Routine 11/30/2024 8:30 AM EST Teeth missing DENTURE IMPRESSION Routine 11/23/2024 11 :00 AM EST Teeth missing INTRAORAL - COMPLETE SERIES OF RADIOGRAPHIC IMAGES Routine 03/22/2024 10:30 AM EDT COMPREHENSIVE ORAL EVALUATION - NEW OR ESTABLISHED PATIENT Routine 03/22/2024 10:30 AM EDT BI MAMMOGRAM SCREENING TOMOSYNTHESIS BILATERAL Routine 03/02/2024 12:47 PM EDT HM PAP/HPV Routine 09/29/2020 from Last 3 Months or Most Recently Relevant to Health Maintenance Results * Hepatitis C Antibody with Reflex to HCV, RNA, Quantitative, Real-Time PCR (02/08/2025 12:44 PM EDT) Hepatitis C Antibody Nonreactive Nonreactive [facility] Comment:Antibodies to HCV no t detected; does not exclude early acuteHCV infection. Blood Venous blood specimen / Unknown 02/08/2025 12:44 PM EDT 02/08/2025 1:12 PM EDT Abiola Youssef LAB BLOOD ORDERABLES Final R esult Performing Organization Address [facility]/ZIP Co de Phone Number [facility] [address] [place] [address] [phone] * Hepatitis A Antibody, Total (02/08/2025 12:44 PM EDT) Hepatitis A Antibody IgG Nonreactive Nonreactive [facility] Blood Venous blood specimen / Unknown 02/08/2025 12:44 PM EDT 02/08/2025 1:12 PM EDT Abiola Youssef DO LAB BLOOD ORDERABLES Final R esult Performing Organization Address [facility]/ZIP Co de Phone Number [facility] [address] [place] [address] [phone] * Hepatitis B surface antigen, EIA (02/08/2025 12:44 PM EDT) Hepatitis B Surface Ag Negative Negative [facility] Blood Venous blood specimen / Unknown 02/08/2025 12:44 PM EDT 02/08/2025 1:12 PM EDT Abiola Youssef LAB BLOOD ORDERABLES Final R esult Performing Organization Address [facility] Co de Phone Number [facility] [address] [place] [phone] * Hepatitis B Core Antibody, Total (02/08/2025 12:44 PM EDT) Hepatitis B Core Antibody Nonreactive Nonreactive [facility] Blood Venous blood specimen / Unknown 02/08/2025 12:44 PM EDT 02/08/2025 1:12 PM EDT Abiola Mcdowellbryon DO LAB BLOOD ORDERABLES Final R esult Performing Organization Address [facility] Co de Phone Number [facility] [address] [place] [address] [phone] * RPR (Monitor) with Reflex to??Titer (02/08/2025 12:44 PM EDT) RPR (Monitor) w/Refl Titer NON-REACTI VE NON-REACT FRANK [facility] Comment:THIS TEST WAS PERFOR MED AT:[employer] [place] [phone] DORMAN MD Rapid Plasma Reagin Ab Titer TNP [facility] Blood Venous blood specimen / Unknown 02/08/2025 12:44 PM EDT 02/08/2025 1:12 PM EDT Abiola Mcdowellbryon DO LAB BLOOD ORDERABLES Final R esult Performing Organization Address [facility] Co de Phone Number [facility] [address] [place] [address] [phone] * HIV-1/2 Antigen and Antibodies, Fourth Generation, with Reflexes (02/08/2025 12:44 PM EDT) HIV AB/AG Nonreactive Nonreactive [facility] Comment:HIV-1 p24 Ag and/or HIV-1/HIV-2 Ab not detected.A test result that is nonreactive does not exclude thepossibility of exposure to or infection with HIV-1 and/orHIV-2. Nonreactive results in this assay for individualswith prior exposure to HIV-1 and/or HIV-2 may be due toantigen and antibody levels that are below the limit ofdetection of this assay.The PxRadianiRazume HIV Ag/Ab Combo assay result andsupplemental assay results should be interpreted inconjunction with the patient's clinical presentation,history and other laboratory results. If the results areinconsistent with clinical evidence, additional testing issuggested to confirm the result. Blood Venous blood specimen / Unknown 02/08/2025 12:44 PM EDT 02/08/2025 1:12 PM EDT Abiola Youssef DO LAB BLOOD ORDERABLES Final R esult Performing Organization Address [facility] Co de Phone Number [facility] [address] [place] [address] [phone] * Hepatitis B Surface Antibody, Qualitative (02/08/2025 12:44 PM EDT) ~Hepatitis B Surface Antibody NONREACTIVE Nonreactive [facility] Comment:Nonreactive: < 8.00 mIU/mL Blood Venous blood specimen / Unknown 02/08/2025 12:44 PM EDT 02/08/2025 1:12 PM EDT Abiola Youssef DO LAB BLOOD ORDERABLES Final R esult Performing Organization Address [facility] Co de Phone Number [facility] [address] [place] [address] [phone] * Vitamin D, 25-Hydroxy, Total, Immunoassay (02/08/2025 10:44 AM EDT) Vitamin D 25-OH Total 46.8 >30 ng/mL [facility] Comment: Health Based Reference Values*< 20 ??ng/mL ??[id number] ng/mL ??Insufficient> 30 ??ng/mL ??Sufficient*Charmaine FREEMAN. N Engl J Med. 2007;[id number] is no well-established upper level of normal vitamin Dlevels. Some laboratories use 50 ng/mL as an upper limit ofnormal. However, toxicity is patient-dependent and may occurat any level. Careful correlation with the patient'spresentation is necessary and, if there is concern forvitamin D toxicity, treatment should be consideredirrespective of the serum level.Care must be taken in interpreting Vitamin D results fromdifferent laboratories and methodologies. ??Published datademonstrated that results from patients undergoinghemodialysis may show a negative bias when tested withvarious automated 25-OH vitamin D assays when compared toLC- MS/MS.When testing samples from patients whose predominant form ofVitamin D is Vitamin D2, such as patients receiving VitaminD2 supplementation, results that are subtherapeutic shouldbe confirmed with another method such as LC-MS/MS. Blood Venous blood specimen / Unknown 02/08/2025 10:44 AM EDT 02/08/2025 1:12 PM EDT Abiola Youssef DO LAB BLOOD ORDERABLES Final R esult Performing Organization Address [facility] de Phone Number [facility] [address] [place] [address] [phone] * Albumin, Random Urine W/Creatinine (02/08/2025 10:44 AM EDT) Creatinine, Urine 180.67 mg/dL [facility] Microalbumin Urine 20.0 mg/L [facility] Microalbum Creatinine Ratio Ur 11.0 <30 ug/mg cr [facility] Comment:Albumin/Creatinine R atio Reference Ranges: Normal: < 30 ug/mg creatinine Microalbuminuria: 30 - 300 ug/mg creatinineClinical Albuminuria: > 300 ug/mg creatinine Urine (Urine, Random) 02/08/2025 10:44 AM EDT 02/08/2025 1:05 PM EDT Abiola Youssef DO LAB URINE ORDERABLES Final R esult Performing Organization Address [facility] Co de Phone Number [facility] [address] [place] [address] [phone] * Chlamydia/N. Gonorrhoeae RNA, TMA, Urogenitial (02/08/2025 10:44 AM EDT) CT PCR NOT DETECTED Not Detect. [facility] Comment:A not detected test result does not exclude the possibilityof infection because test results can be affected byimproper specimen collection, concurrent antibiotic therapy,or the number of organisms in the specimen which may bebelow the sensitivity of the test. As with many diagnostictests, results from the Xpert CT/NG assay should beinterpreted in conjunction with other laboratory andclinical data available to the clinician.Xpert CT/NG performance has not been evaluated in patientsless than 14 years of age. The assay should not be used forthe evaluationof suspected sexual abuse or for other medico-legalindications. Additional testing is recommended in anycircumstance when false positive or false negative resultscould lead to adverse medical, social or psychologicalconsequences. NG PCR NOT DETECTED Not Detect. [facility] Comment:A not detected test result does not exclude the possibilityof infection because test results can be affected byimproper specimen collection, concurrent antibiotic therapy,or the number of organisms in the specimen which may bebelow the sensitivity of the test. As with many diagnostictests, results from the Xpert CT/NG assay should beinterpreted in conjunction with other laboratory andclinical data available to the clinician.Xpert CT/NG performance has not been evaluated in patientsless than 14 years of age. The assay should not be used forthe evaluationof suspected sexual abuse or for other medico-legalindications. Additional testing is recommended in anycircumstance when false positive or false negative resultscould lead to adverse medical, social or psychologicalconsequences. Urine Urethral structure / Unknown 02/08/2025 10:44 AM EDT 02/08/2025 1:05 PM EDT Narrative [facility] - 02/08/2025 2:45 PM EDT Urine us Abiola Youssef DO LAB MICROBIOLOGY - GENERAL O RDERABLES Final Result [facility] [address] [place] [phone] * CBC (02/08/2025 10:44 AM EDT) White Blood Count 5.3 4.8 - 10.8 X10*3/uL [facility] Red Blood Count 4.24 4.20 - 5.50 X10*6/uL [facility] Hemoglobin 12.6 12.0 - 16.0 g/dl [facility] Hematocrit 38.0 37.0 - 47.0 % [facility] Mean Corpuscular Volume 89.6 80.0 - 98.0 fL [facility] Mean Corpuscular Hemoglobin 29.7 27.0 - 33.0 pg [facility] Mean Corpuscular HGB Conc 33.2 31.0 - 35.0 g/dl [facility] Red Cell Distribution Width 14.1 11.0 - 16.0 % [facility] Platelet Count 172 160 - 400 X10*3/uL [facility] Mean Platelet Volume 11.2 9.4 - 12.3 fL [facility] NRBC Pct Auto 0.0 0.0 - 0.2 /100WBC [facility] NRBC Abs Auto 0.000 0.0 - 0.012 X10*3/uL [facility] Blood Venous blood specimen / Unknown 02/08/2025 10:44 AM EDT 02/08/2025 1:12 PM EDT us Abiola Youssef DO LAB BLOOD ORDERABLES Final R esult [facility] [address] [place] [address] [phone] * TSH (02/08/2025 10:44 AM EDT) Thyroid Stimulating Hormone 1.00 0.32 - 4.0 uIU/mL [facility] Comment:TSH 3rd Generation ( [employer]) Blood Venous blood specimen / Unknown 02/08/2025 10:44 AM EDT 02/08/2025 1:12 PM EDT Abiola Domonique LAB BLOOD ORDERABLES Final R esult [facility] [address] [place] [phone] * T4, Free (02/08/2025 10:44 AM EDT) Free T4 (Free Thyroxine) 1.00 0.71 - 1.85 ng/dL [facility] Blood Venous blood specimen / Unknown 02/08/2025 10:44 AM EDT 02/08/2025 1:12 PM EDT Abiola Domonique LAB BLOOD ORDERABLES Final R esult Performing Organization Address City/[facility] Co de Phone Number [facility] [address] [place] [phone] * (ABNORMAL) Hemoglobin A1c (02/08/2025 10:44 AM EDT) Hemoglobin A1c 6.6(H) <6.0 % [facility] Comment:Hemoglobin A1C Refer ence Range Adults: 4.8 - 6.0 % Non diabetic: < 6.0 % Goal: < 7.0 %Additional Action Suggested: > 8.0 %Note: Hemoglobin A1c results are invalid for patients with abnormal amounts of HbF. Blood transfusions may impact the HbA1c concentration in the patient sample. Estimated Average Glucose 143 mg/dL [facility] Comment:eAG = Estimated ave rage glucose which is %A1C expressed asaverage glucose, using the formula of the B3C-EqwaeocCviouur Glucose study (ADAG), Diabetes Care, Vol.31,#8,2007 Blood Venous blood specimen / Unknown 02/08/2025 10:44 AM EDT 02/08/2025 1:12 PM EDT Abiola Mcdowelllarrysixto DO LAB BLOOD ORDERABLES Final R esult Performing Organization Address City/[facility]/ZIP Co de Phone Number [facility] [address] [place] [address] [phone] * (ABNORMAL) Hepatic Function Panel (02/08/2025 10:44 AM EDT) Pathologist [facility] Bilirubin, Total 0.4 0.0 - 1.0 mg/dL [facility] Bilirubin, Direct 0.2 0.0 - 0.5 mg/dL [facility] Aspartate Amino Transferase 29 5 - 31 U/L [facility] Alanine Aminotransferase 43(H) 0 - 31 U/L [facility] Total Protein 7.2 6.5 - 8.0 g/dL [facility] Albumin Level 3.9 3.5 - 5.0 g/dL [facility] Alkaline Phosphatase 96 39 - 117 U/L [facility] Blood Venous blood specimen / Unknown 02/08/2025 10:44 AM EDT 02/08/2025 1:12 PM EDT Abiola Youssef DO LAB BLOOD ORDERABLES Final R esult Performing Organization Address City/[facility]/ZIP Co de Phone Number [facility] [address] [place] [phone] * (ABNORMAL) Lipid Panel, Standard (02/08/2025 10:44 AM EDT) Triglycerides 128 <150 mg/dL [facility] Comment:Desirable Triglyceri de: less than 150 mg/dLBorderline High Triglyceride 150-199 mg/dLHigh Triglyceride: 200-499 mg/dLVery High Triglyceride: greater than or equal to 5OO mg/dL Cholesterol 187 <200 mg/dL [facility] Comment:Desirable Cholestero l: less than 200 mg/dLBorderline High Cholesterol: 200-239 mg/dLHigh Cholesterol: greater than 239 mg/dL LDL Cholesterol Calculated 120(H) <100 mg/dL [facility] Comment:Desirable LDL: less than 100 mg/dLNear Optimal/Above Optimal LDL: 110- 129 mg/dLBorderline High LDL: 130-159 mg/dLHigh LDL: 160-189 mg/dLVery High LDL: greater than or equal to 190 mg/dL HDL Cholesterol 42 >40 mg/dL [facility] Comment:Desirable HDL: great er than 40 mg/dL Note: This HDL assay may give artificially low results in patients with liver disease. Blood Venous blood specimen / Unknown 02/08/2025 10:44 AM EDT 02/08/2025 1:12 PM EDT us Abiola Youssef DO LAB BLOOD ORDERABLES Final R esult Performing Organization Address City/[facility]/ZIP Co de Phone Number [facility] [address] [place] [phone] * (ABNORMAL) Basic Metabolic Panel (02/08/2025 10:44 AM EDT) Sodium 138 135 - 145 mmol/L [facility] Potassium 3.7 3.3 - 5.1 mmol/L [facility] Chloride 102 96 - 108 mmol/L [facility] Carbon Dioxide 29 22 - 29 mmol/L [facility] Anion Gap 11(L) 12 - 20 [facility] Urea Nitrogen (BUN) 12 9 - 16 mg/dL [facility] Creatinine, Serum 0.69 0.5 - 1.4 mg/dL [facility] Estimated Glomerular Filt Rate >60 [facility] Comment:Chronic Kidney Disea se: Estimated GFR < 60 mL/min/1.05t3Lgttui Kidney Disease: Estimated GFR < 15 mL/min/1.73m2 Glucose 147(H) 60 - 115 mg/dL [facility] Calcium 9.3 8.4 - 10.2 mg/dL [facility] Blood Venous blood specimen / Unknown 02/08/2025 10:44 AM EDT 02/08/2025 1:12 PM EDT us Abiola Youssef DO LAB BLOOD ORDERABLES Final R esult [facility] [address] [place] [phone] * OCT, Optic Nerve - OU - Both Eyes (01/31/2025 11:11 AM EDT) Misty Waller, OD - 01/31/2025 11:11 AM EDT Right Eye Images reviewed and comparison made to baseline. To assess optic nerve function and for use in future follow-up. Reliability: good and adequate. Left Eye Images reviewed and comparison made to baseline. To assess optic nerve function and for use in future follow-up. Reliability: good and adequate. Notes OCT OPTIC NERVE INTERPRETATION Optical Coherence Tomography Interpretation Report Test Details: Measurements: OD ??OS C/D Horizontal 0.69 ??0.76 C/D Vertical 0.58 ??0.66 Disc area 2.75 mm 2 ??3.03 mm 2 RNFL Average 119 microns ??123 microns ?? Test findings: OD: Normal RNFL thickness 360 degrees OS: Normal RNFL thickness 360 degrees Impression and Plan: Right eye (OD): 3 micron decrease in average RNFL thickness Left eye (OS): 1 micron decrease in average RNFL thickness No concern for glaucoma at this time. Will monitor in 1 year. Misty Romeo OD OPHTH TOMOGRAPHY Final Result * ECG 12 lead (01/11/2025 1:55 PM EST) Jarrod MurfreesboroKasandra FNP - 01/11/2025 1:55 PM EST NSR [facility] ECG ORDERABLES Final Result * BI Mammogram Screening Tomosynthesis Bilateral (03/02/2024 12:47 PM EDT) Anatomical Region Laterality Modality Breast Bilateral Mammography 03/02/2024 12:4 7 PM EDT Narrative 03/08/2024 8:11 PM EDT ? [facility] ? [address] ?[place] [address] ? Mammography Report ? Signed ? Patient: Miller,Iris ?MR#: [id number] ? : 1975 ?Acct:[id number] ? Age/Sex: 48 / F ?ADM Date: 04/16/24 ? Loc: HO.MAMMO ? Attending Dr: Abiola Youssef DO ? Ordering Physician: Abiola Youssef DO ?Results: 2B ?? enign Findings ? Date of Service: 03/02/24 ?Follow Up: 1 Year From Orig ?? inal Mammogram ? Procedure(s): MM tomosynthesis screening BI ?? Accession Number(s): [id number] ? cc: Abiola Youssef DO ? EXAMINATION: ?? MM SCREENING DIGITAL BREAST TOMOSYNTHESIS, BILATERAL ? CLINICAL INFORMATION: ? Screening. Asymptomatic. ? The patient is status post bilateral breast reduction. ?? COMPARISON: ?? Mammography: This study is compared with prior exams dating back to ?? 2018. ? TECHNIQUE: ?? Digital breast tomosynthesis is performed in both the craniocaudal and ?? mediolateral oblique views along with computer-aided detection (CAD). ?? Synthesized 2D images are generated from the tomosynthesis. ? FINDINGS: ?? There are scattered areas of fibroglandular density (ACR BI-RADS breast ?? composition Category b). ? There are no significant masses, abnormal calcifications, or other ?? abnormalities. ? There are post reduction changes in each breast. ? MM/MM tomosynthesis screening BI ?? IMPRESSION: ?? No mammographic evidence of malignancy. ? ASSESSMENT: ? BI-RADS BI-RADS 2 - Benign Findings ? RECOMMENDATION: ?? Routine annual mammography screening. ? 1 year F/U ? This examination should not preclude the clinical evaluation of a ?? suspicious palpable abnormality. ? This patient's information was entered into a reminder system with a ?? target due date for their next mammogram. ? Dictated By: ?Verónica Mejia MD ? Signed By: ?<Electronically signed by Verónica Mejia MD in OV> ? 03/08/242006 ? DD/ 1247 ? TD/TT: ? Baggageman: ? Procedure Note Donotshantinterpreter, Image - [facility] [address] [place] [address] Mammography Report Signed Patient: Carlos Miller#: [id number] : 1975Acct:[id number] Age/Sex: 48 / FADM Date: 03/02/24 Loc: HO.MAMMO Attending Dr: Abiola Youssef DO Ordering Physician: Abiola Youssefults: 2B enign Findings Date of Service: 03/02/24Follow Up: 1 Year From Orig inal Mammogram Procedure(s): MM tomosynthesis screening BI Accession Number(s): [id number] cc: Abiola Youssef DO EXAMINATION: MM SCREENING DIGITAL BREAST TOMOSYNTHESIS, BILATERAL CLINICAL INFORMATION: Screening. Asymptomatic. The patient is status post bilateral breast reduction. COMPARISON: Mammography: This study is compared with prior exams dating back to 2018. TECHNIQUE: Digital breast tomosynthesis is performed in both the craniocaudal and mediolateral oblique views along with computer-aided detection (CAD). Synthesized 2D images are generated from the tomosynthesis. FINDINGS: There are scattered areas of fibroglandular density (ACR BI-RADS breast composition Category b). There are no significant masses, abnormal calcifications, or other abnormalities. There are post reduction changes in each breast. MM/MM tomosynthesis screening BI IMPRESSION: No mammographic evidence of malignancy. ASSESSMENT: BI-RADS BI-RADS 2 - Benign Findings RECOMMENDATION: Routine annual mammography screening. 1 year F/U This examination should not preclude the clinical evaluation of a suspicious palpable abnormality. This patient's information was entered into a reminder system with a target due date for their next mammogram. Dictated By: Verónica Mejia MD Signed By: <Electronically signed by Verónica Mejia MD in OV> 03/08/242006 DD/ 1247 TD/TT: Baggageman: us Abiola Youssef DO IMG BI PROCEDURES Edited Res ult - Final * Hm Pap Smear (09/29/2020) Pap Negative for intraephithelial lesion or malignancy Negative for intraephithelial lesion or malignancy, Other HPV Undetected Historical Provider HEALTH MAINTENANCE Final Result from Last 3 Months or Most Recently Relevant to Health Maintenance Insurance [facility] MEDICA[facility] STAND ADULT Care Teams Social Human Services Assistants Relationship Specialty Start Date End Date Abiola Youssef DO [address] [place] [phone] PCP - General Family Medicine 08/01/15
[2025-02-22 06:38] LABS: CT PCR NOT DETECTED (Not Detect.); NG PCR NOT DETECTED (Not Detect.)
[2025-02-22 11:03] LABS: Bacterial Vaginosis PCR POSITIVE (Negative); Candida Group PCR NOT DETECTED (Not Detect); Candida glab krusei PCR NOT DETECTED (Not Detect); Trichomonas vaginalis PCR NOT DETECTED (Not Detect)
== END 2025-02-21 13:50 | disposition home or self-care (01) ==
LOC: HO.LAB 13:49
PROVIDERS: PCP Family Medicine; Visit Provider Advanced Practice Midwife
DX: Z01.419 Encounter for gynecological examination (general) (routine) without abnormal findings (principal); N89.8 Other specified noninflammatory disorders of vagina; Z20.2 Contact with and (suspected) exposure to infections with a predominantly sexual mode of transmission
CPT/HCPCS: 81515; 87491; 87591; 99396; 99459

== ENCOUNTER 2025-03-08 12:03 | Outpatient (REF) | payer MEDICAID, SELFPAY ==
--- OUTSIDE RECORDS SUMMARY | 2025-03-08 14:24 | XMS_ITS | Encounter Summary ---
Author Organization [employer] [facility] Address [address] [place] [address] 7 [place] [address] Care Team Providers Care Sr. Social Media & Mobile Manager Name Role Phone Abiola Youssef DO Primary Care Provider [phone] Reason for Visit * Reason Comments Med Change Request Encounter Details Date Type Department Care Team ([facility] st Contact Info) Description 10/23/2023 Refill [facility] MEDICINE [address] [place], [place] [phone] Abiola Youssef DO [address] [place] [address] Type 2 diabetes mellitus without complication, without long-term current use of insulin (CMS/[facility]) Social History Tobacco Use Types Packs/Day [...] (CMS/HCC) documented in this encounter Care Teams Sr. Social Media & Mobile Manager Relationship Specialty Start Date End Date Abiola Youssef DO [address] [place], [place] [phone] PCP - General Family Medicine 08/01/15 documented as of this encounter
--- OUTSIDE RECORDS SUMMARY | 2025-03-08 14:24 | XMS_ITS | Encounter Summary ---
Author Organization [employer] Address [address] [facility] 7t [place] [address] Care Team Providers Care Web Graphic Designer Name Role Phone Abiola Youssef DO Primary Care Provider [phone] Encounter Details Date Type Department Care Team (Late st Contact Info) Description 12/23/2022 Orders Only [facility] MED & PEDS [address] [place] [address] Abiola Farnsworth LPN Social History Tobacco Use [...] on filedocumented in this encounter Care Teams Web Graphic Designer Relationship Specialty Start Date End Date Abiola Youssef DO [address] [place] [address] PCP - General Family Medicine 08/01/15 documented as of this encounter
--- OUTSIDE RECORDS SUMMARY | 2025-03-08 14:24 | XMS_ITS | Encounter Summary ---
Author Organization [employer] Address [address] [facility] 7t [place] [address] Care Team Providers Care Grocery Specialist Name Role Phone SusanneAbiola henson Primary Care Provider + [phone] Reason for Visit * Reason Comments Med Refill Encounter Details Date Type Department Care Team ([facility] st Contact Info) Description 05/25/2024 Refill [facility] ADULT [facility] [address] [place] [address] Edith Lee, DDS [address] [place] [address] Social History Tobacco Use Types Packs/Day Years [...] documented as of this encounter Care Teams Grocery Specialist Relationship Specialty Start Date End Date Abiola Youssef DO [address] [place] [address] PCP - General Family Medicine 08/01/15 documented as of this encounter
--- OUTSIDE RECORDS SUMMARY | 2025-03-08 14:24 | XMS_ITS | Encounter Summary ---
Author Organization [employer] [facility] Address [address] [place] [address] 7 [place] [address] Care Team Providers Care General Service Officer Name Role Phone Abiola Youssef DO Primary Care Provider [phone] Reason for Visit * Reason Comments Med Refill Encounter Details Date Type Department Care Team ([facility] st Contact Info) Description 01/07/2024 Refill [facility] MEDICINE [address] [place], [place] [phone] Abiola Youssef DO [address] [place] [address] Encounter for general adult medical examination without [...] findings documented in this encounter Care Teams General Service Officer Relationship Specialty Start Date End Date Abiola Youssef DO [address] [place] [address] PCP - General Family Medicine 08/01/15 documented as of this encounter
--- OUTSIDE RECORDS SUMMARY | 2025-03-08 14:24 | XMS_ITS | Encounter Summary ---
Author Organization [employer] Address [address] [facility] 7t [place] [address] Care Team Providers Care Gill Tender Name Role Phone Abiola Youssef DO Primary Care Provider + [phone] Reason for Visit * Reason Onset Date Comments PT-1 10/21/2024 Encounter Details Date Type Department Care Team ([facility] st Contact Info) Description 10/21/2024 Telephone [facility] MEDICINE [address] [place], [place] [phone] Abiola Youssef DO [address] [place], [place] [phone] PT-1 Social History Tobacco Use Types Packs/Day [...] Y/N: Yes Provider name or facility name: [address] Escort needed: Y/N: Yes Do you [...] documented as of this encounter Care Teams Gill Tender Relationship Specialty Start Date End Date Abiola Youssef DO [address] [place] [address] PCP - General Family Medicine 08/01/15 documented as of this encounter
--- OUTSIDE RECORDS SUMMARY | 2025-03-08 14:24 | XMS_ITS | Encounter Summary ---
Author Organization [employer] [facility] Address [address] [place] [address] [address] [place] [address] Care Team Providers Care Grounds Manager Name Role Phone Abiola Youssef DO Primary Care Provider [phone] Reason for Visit * Reason Onset Date Comments Med Refill 11/17/2023 Encounter Details Date Type Department Care Team (Late st Contact Info) Description 11/17/2023 Refill [facility] MEDICINE [address] [place], [place] [phone] Abiola Youssef DO [address] [place] [address] Type 2 diabetes mellitus without complication, without long-term current use of insulin ([facility]) Social History Tobacco Use Types Packs/Day Years [...] (CMS/HCC) documented in this encounter Care Teams Grounds Manager Relationship Specialty Start Date End Date Abiola Youssef DO [address] [place], [place] [phone] PCP - General Family Medicine 08/01/15 documented as of this encounter
--- OUTSIDE RECORDS SUMMARY | 2025-03-08 14:24 | XMS_ITS | Encounter Summary ---
Author Organization [facility] Address [address] [place] [address] 7 [place] [address] Care Team Providers Care Manager Diesel Name Role Phone Abiola Youssef DO Primary Care Provider [phone] Reason for Visit * Reason Comments Med Refill Encounter Details Date Type Department Care Team ([facility] st Contact Info) Description 12/22/2023 Refill [facility] [address] [place] [address] Abiola Youssef DO [address] [place] [address] Social History Tobacco Use Types Packs/Day Years [...] on filedocumented in this encounter Care Teams Manager Diesel Relationship Specialty Start Date End Date Abiola Youssef DO [address] [place], [place] [phone] PCP - General Family Medicine 08/01/15 documented as of this encounter
--- OUTSIDE RECORDS SUMMARY | 2025-03-08 14:24 | XMS_ITS | Encounter Summary ---
Author Organization [employer] Address [address] [facility] 7t [place] [address] Care Team Providers Care Classroom Monitor Name Role Phone SusanneAbiola henson Primary Care Provider + [phone] Reason for Visit * Reason Comments Med Refill Encounter Details Date Type Department Care Team ([facility] st Contact Info) Description 09/30/2024 Refill [facility] ADULT DENTAL [address] [place] [address] Edith Lee, DDS [address] [place] [address] Social History Tobacco Use Types Packs/Day Years [...] documented as of this encounter Care Teams Classroom Monitor Relationship Specialty Start Date End Date Abiola Youssef DO [address] [place] [address] PCP - General Family Medicine 08/01/15 documented as of this encounter
--- OUTSIDE RECORDS SUMMARY | 2025-03-08 14:24 | XMS_ITS | Encounter Summary ---
Author Organization [employer] [facility] Address [address] [place] [address] [address] [place] [address] Care Team Providers Care Furnace Combination Analyst Name Role Phone Abiola Youssef DO Primary Care Provider Encounter Details Date Type Department Care Team (Late st Contact Info) Description 01/20/2023 Orders Only [facility] MEDICINE [address] [place] [address] Nan Alexander LPN Social History Tobacco Use [...] on filedocumented in this encounter Care Teams Furnace Combination Analyst Relationship Specialty Start Date End Date Abiola Youssef DO [address] [place] [address] PCP - General Family Medicine 08/01/15 documented as of this encounter
--- OUTSIDE RECORDS SUMMARY | 2025-03-08 14:24 | XMS_ITS | Clinical Summary ---
Author Organization [facility], Address [address] [place] [address] Phone Care Team Providers Care Drill Press Hand Name Role Phone Unavailable Primary Care Provider [...] night Active cholecalciferol (VITAMIN D-3) 1.25 MG (10843 UT) capsule Take 50,000 Units by mouth [...] Health Maintenance Due Date Last Done Comments Hepatitis B Vaccine (1 of 3 - 19+ 3-dose series) 1995 Pneumococcal Vaccine: Peds ( 0 to 5 Years) and At-Risk Patients (6 to 49 Years) (1 of 2 - PCV) 1995 Diabetes: Hemoglobin A1C 06/30/2023 Diabetes: Ophthalmology Exam 06/30/2023 Diabetes: Pedal Pulse Checked 06/30/2023 Diabetes: Sensory Foot Exam 06/30/2023 Diabetes: Visual Foot Exam 06/30/2023 Influenza Vaccine (Season Ended) 2025 09/16/2022, 09/10/2021, 08/13/2019, Additional history exists Insurance Medicaid [place]
--- OUTSIDE RECORDS SUMMARY | 2025-03-08 14:24 | XMS_ITS | Encounter Summary ---
Author Organization [employer] [facility] Address [address] [place] [address] [address] [place] [address] Care Team Providers Care Pcu Rn Name Role Phone Abiola Youssef DO Primary Care Provider [phone] Reason for Visit * Reason Onset Date Comments Med Refill 01/07/2024 Encounter Details Date Type Department Care Team (Late st Contact Info) Description 01/07/2024 Refill [facility] MEDICINE [address] [place], [place] [phone] Abiola Youssef DO [address] [place] [address] Social History Tobacco Use Types Packs/Day Years [...] on filedocumented in this encounter Care Teams Pcu Rn Relationship Specialty Start Date End Date Abiola Youssef DO [address] [place], [place] [phone] PCP - General Family Medicine 08/01/15 documented as of this encounter
--- OUTSIDE RECORDS SUMMARY | 2025-03-08 14:24 | XMS_ITS | Encounter Summary ---
Author Organization [employer] Address [address] [facility] 7t [place] [address] Care Team Providers Care Cna Instructor Name Role Phone Abiola Youssef DO Primary Care Provider + [phone] Reason for Visit * Reason Onset Date Comments PT1 09/16/2024 Encounter Details Date Type Department Care Team ([facility] st Contact Info) Description 09/16/2024 Telephone [facility] MED[facility]INE [address] [place], [place] [phone] Abiola Youssef DO [address] [place], [place] [phone] PT1 Social History Tobacco Use Types Packs/Day [...] Y/N: Yes Provider name or facility name: [facility] Facility Address: [address] [place] [address] Escort needed: Y/N: Yes Do you have [...] documented as of this encounter Care Teams Cna Instructor Relationship Specialty Start Date End Date Abiola Youssef DO [address] [place] [address] PCP - General Family Medicine 08/01/15 documented as of this encounter
--- OUTSIDE RECORDS SUMMARY | 2025-03-08 14:24 | XMS_ITS | Encounter Summary ---
Author Organization [employer] [facility] Address [address] [place] [address] 7 [place] [address] Care Team Providers Care Maintenance Of Way Clerk Name Role Phone Abiola Youssef DO Primary Care Provider [phone] Reason for Visit * Reason Comments Med Refill Encounter Details Date Type Department Care Team (Late st Contact Info) Description 11/24/2023 Refill [facility] MEDICINE [address] [place], [place] [phone] Abiola Youssef DO [address] [place] [address] Hypertension, unspecified type Social History Tobacco Use [...] type documented in this encounter Care Teams Maintenance Of Way Clerk Relationship Specialty Start Date End Date Abiola Youssef DO [address] [place], [place] [phone] PCP - General Family Medicine 08/01/15 documented as of this encounter
--- OUTSIDE RECORDS SUMMARY | 2025-03-08 14:24 | XMS_ITS | Encounter Summary ---
Author Organization [employer] Address [address] [facility] 7t [place] [address] Care Team Providers Care Provider Network Manager Name Role Phone Abiola Youssef DO Primary Care Provider + [phone] Reason for Visit * Reason Comments Med Change Request Encounter Details Date Type Department Care Team ([facility] st Contact Info) Description 05/11/2024 Refill [facility] MED[facility]INE [address] [place], [place] [phone] Abiola Youssef DO 230 [place], [place] [phone] Type 2 diabetes mellitus without complication, without long-term current use of insulin ([facility]) Social History Tobacco Use Types [...] complication, without long-term current use of insulin ([facility]) documented in this encounter Additional Health Concerns Assessment Noted Time PHQ-9 Depression Total Score: 4 02/19/20 24 11:15 AM EDT documented as of this encounter Care Teams Provider Network Manager Relationship Specialty Start Date End Date Abiola Youssef DO [address] [place] [address] PCP - General Family Medicine 08/01/15 documented as of this encounter
--- OUTSIDE RECORDS SUMMARY | 2025-03-08 14:24 | XMS_ITS | Encounter Summary ---
Author Organization [employer] Address [address] [facility] 7t [place] [address] Care Team Providers Care Supervisor Capacitor Processing Name Role Phone Abiola Youssef DO Primary Care Provider + [phone] Reason for Visit * Reason Comments Med Refill Encounter Details Date Type Department Care Team ([facility] st Contact Info) Description 03/10/2024 Refill [facility] 230 [place], [place] [phone] Abiola Youssef DO 230 [place] [address] Social History Tobacco Use Types Packs/Day Years [...] documented as of this encounter Care Teams Supervisor Capacitor Processing Relationship Specialty Start Date End Date Abiola Youssef DO [address] [place] [id number] PCP - General Family Medicine 08/01/15 documented as of this encounter
--- OUTSIDE RECORDS SUMMARY | 2025-03-08 14:24 | XMS_ITS | Encounter Summary ---
Author Organization [employer] Address [address] [place] [address] 7 [place] [address] Care Team Providers Care Assessment Consultant Name Role Phone Abiola Youssef DO Primary Care Provider [phone] Reason for Visit * Reason Comments Med Refill Encounter Details Date Type Department Care Team ([facility] st Contact Info) Description 12/15/2023 Refill [facility] CH[facility] MED & PEDS [address] [place], [place] [phone] Abiola Youssef DO [address] [place] [address] Encounter for general adult medical examination without [...] findings documented in this encounter Care Teams Assessment Consultant Relationship Specialty Start Date End Date Abiola Youssef DO [address] [place] [address] PCP - General Family Medicine 08/01/15 documented as of this encounter
--- OUTSIDE RECORDS SUMMARY | 2025-03-08 14:24 | XMS_ITS | Encounter Summary ---
Author Organization [employer] Address [address] [facility] 7t [place] [address] Care Team Providers Care Officer Captain Name Role Phone SusanneAbiola henson Primary Care Provider + [phone] Reason for Visit * Reason Comments Med Refill Encounter Details Date Type Department Care Team ([facility] st Contact Info) Description 08/06/2024 Refill [facility] ADULT DENTAL [address] [place] [address] Edith Lee, DDS [address] [place] [address] Social History Tobacco Use Types Packs/Day Years [...] documented as of this encounter Care Teams Officer Captain Relationship Specialty Start Date End Date Abiola Youssef DO [address] [place] [address] PCP - General Family Medicine 08/01/15 documented as of this encounter
--- OUTSIDE RECORDS SUMMARY | 2025-03-08 14:24 | XMS_ITS | Encounter Summary ---
Author Organization [employer] Address [address] [facility] 7t [place] [address] Care Team Providers Care Compressor Assembler Name Role Phone SusanneAbiola henson Primary Care Provider + [phone] Reason for Visit * Reason Comments Med Refill Encounter Details Date Type Department Care Team ([facility] st Contact Info) Description 07/04/2024 Refill [facility] ADULT DENTAL [address] [place] [address] Edith Lee, DDS [address] [place] [address] Social History Tobacco Use Types Packs/Day Years [...] documented as of this encounter Care Teams Compressor Assembler Relationship Specialty Start Date End Date Abiola Youssef DO [address] [place] [address] PCP - General Family Medicine 08/01/15 documented as of this encounter
--- OUTSIDE RECORDS SUMMARY | 2025-03-08 14:24 | XMS_ITS | Continuity of Care Document ---
Author Organization [facility] Address [address] [place] [address]- Care Team Providers Care Design Specialist Name Role Phone Abiola Youssef DO Primary Care Physician [phone] [place] [facility] [place] 01/31/25 - 03/02/[address] [address] Attending Physician: Narendra Nix Admitting Physician: Narendra Nix Referring Physician: Narendra Nix Referring Physician: Emilia Dunham [place] Encounter Type: Triage Allergies, Adverse Reactions, Alerts No Known Allergies Medications amoxicillin 500 mg oral capsule See Instructions, 4 CAPSULE 1 HOUR BEFORE DENTAL PROCEDURE, # 4 capsule, 1 Refills, Maintenance, 11/05/24 8:07:00 AM EST, [id number], 159, cm, 11/04/24 15:15:00 EST, Height, 88, kg, 11/03/24 9:27:00 EST, Dry Weight Start Date: 11/05/24 Status: Ordered Quantity: 4.0 Unit: capsule Repeat number: 1 barium sulfate 2% oral suspension See Instructions, Use as instructed. 2 bottles 450 mL each, # 900 mL, 0 Refills, Maintenance, 06/03/24 10:37:00 AM EDT, [id number], Partial fill upon patient request if the prescription is fora schedule II opioid drug., Use as instructed. 2 bottles 450 mL each, 160, cm, 05/28/24 14:21:00 EDT, Height, 80.5, kg, 05/26/24 8:29:00 EDT, Dry Weight Start Date: 06/03/24 Status: Ordered Quantity: 900.0 Unit: mL Repeat number: 1 CertaVite with Antioxidants By Mouth, Daily, 0 Refills, Maintenance, 05/14/23 1:52:00 PM EDT, Partial fill upon patient request if the prescription is for a schedule II opioid drug. Start Date: 05/14/23 Status: Ordered Repeat number: 1 dexamethasone 4 mg oral tablet 1 tablet = 4 mg, By Mouth, Daily, Start the Day After Chemotherapy for 3 days with food, # 18 tablet, 1 Refills, Maintenance, 08/06/24 8:32:00 AM EDT, [facility]/pharmacy #[id number], Partial fill upon patient request if the prescription is for a schedule II opioid drug., 160, cm, 08/04/24 8:50:00 EDT, Height, 85.5, kg, 08/04/24 8:37:00 EDT, Dry Weight Start Date: 08/06/24 Status: Ordered Quantity: 18.0 Unit: tablet Repeat number: 2 Indication: Malignant neoplasm of colon, unspecified docusate sodium 100 mg oral capsule 1 capsule = 100 mg, By Mouth, 2 times a day, # 60 capsule, 0 Refills, Maintenance, 03/01/13 11:19:11AM EDT, Capsule Start Date: 03/01/13 Status: Ordered Quantity: 60.0 Unit: capsule Repeat number: 1 Hydrochlorothiazide = 25 mg, By Mouth, Daily, 0 Refills, Maintenance, 05/14/23 1:54:00 PM EDT, Partial fill upon patientrequest if the prescription is for a schedule II opioid drug. Start Date: 05/14/23 Status: Ordered Repeat number: 1 lisinopril 10 mg oral tablet 10 mg, 1, tablet, By Mouth, Daily, # 30 tablet, Refills 0, Maintenance, 10/08/23 8:54:00 AM EST, Partial fill upon patient request if the prescription is for a schedule II opioid drug. Start Date: 10/08/23 Status: Ordered Quantity: 30.0 Unit: tablet Repeat number: 1 Loratadine 10 mg, By Mouth, Daily, Refills 0, Maintenance, 05/14/23 1:53:00 PM EDT, Partial fill upon patient request if the prescription is for a schedule II opioid drug. Start Date: 05/14/23 Status: Ordered Repeat number: 1 melatonin 5 mg oral tablet 1 tablet = 5 mg, By Mouth, Daily at bedtime, 0 Refills, Maintenance, 05/14/23 1:52:00 PM EDT, Partial fill upon patient request if the prescription is for a schedule II opioid drug. Start Date: 05/14/23 Status: Ordered Repeat number: 1 metFORMIN 500 mg oral tablet 2 tablet = 1,000 mg, By Mouth, 2 times a day, 0 Refills, Maintenance, 05/14/23 1:53:00 PM EDT, Partial fill upon patient request if the prescription is for a schedule II opioid drug. Start Date: 05/14/23 Status: Ordered Repeat number: 1 Naprosyn 500 mg oral tablet 1 tablet = 500 mg, By Mouth, 2 times a day, PRN Pain, # 20 tablet, 0 Refills, Maintenance, 02/16/19 5:18:34 PM EDT, Tablet Start Date: 02/16/19 Status: Ordered Quantity: 20.0 Unit: tablet Repeat number: 1 omeprazole 20 mg oral delayed release tablet 1 tablet = 20 mg, By Mouth, Daily, Chemotherapy induced gastritis do not crush or chew, # 90 tablet, 1 Refills, Maintenance, 09/30/24 8:59:00 AM EST, CR Tablet, [facility]/pharmacy #[id number], May substitute forcapsule form if covered by insurance, 159, cm, 09/29/24 9:18:00 EST, Height, 86, kg, 09/20/24 16:00:00 EST, Dry Weight Start Date: 09/30/24 Status: Ordered Quantity: 90.0 Unit: tablet Repeat number: 2 Indication: Malignant neoplasm of colon, unspecified omeprazole 20 mg oral enteric coated capsule 1 capsule = 20 mg, By Mouth, Daily, # 90 capsule, 1 Refills, Maintenance, 09/01/23 9:09:00 AM EDT, EC Capsule, [facility]/pharmacy #[id number], Partial fill upon patient request if the prescription is for a schedule II opioid drug., 160, cm, 08/29/23 15:55:00 EDT, Height, 87.6, kg, 08/27/23 9:44:00 EDT, Dry Weight Start Date: 09/01/23 Stop Date: 02/28/24 Status: Ordered Quantity: 90.0 Unit: capsule Repeat number: 2 ondansetron 8 mg oral tablet 1 tablet = 8 mg, By Mouth, Every 8 hours, PRN Severe Nausea & Vomiting, # 15 tablet, 1 Refills,Maintenance, 08/06/24 8:30:00 AM EDT, Tablet, [facility]/pharmacy #[id number], Partial fill upon patient request if the prescription is for a schedule II opioid drug., 160, cm, 08/04/24 8:50:00 EDT, Height, 85.5, kg, 08/04/24 8:37:00 EDT, Dry Weight Start Date: 08/06/24 Status: Ordered Quantity: 15.0 Unit: tablet Repeat number: 2 Indication: Malignant neoplasm of colon, unspecified oxyCODONE 5 mg oral tablet 5 mg, 1, tablet, By Mouth, Every 6 hours, PRN, # 12 tablet, Refills 0, Tot. Refills 0, Maintenance,as needed for pain, 01/05/25 12:36:00 AM EST, Route to Pharmacy Electronically, [facility]/pharmacy #[id number], Partial fill upon patient request if the prescription is for a schedule II opioid drug., 161, cm, 01/04/25 18:26:00 EST, Height, 89.4, kg, 01/04/25 18:26:00 EST, Dry Weight Start Date: 01/05/25 Status: Ordered Quantity: 12.0 Unit: tablet Repeat number: 1 PEG-3350 with Electrolytes (Eqv-NuLYTELY) oral powder for reconstitution See Instructions, Follow instructions on handout or as instructed from office, # 1 each, 0 Refills,Maintenance, 05/14/23 4:12:00 PM EDT, [id number], Partial fill upon patient request if the prescription is for a schedule II opioid drug., Follow instructions on handout or as instructed from office, 160, cm, 05/14/23 15:59:00 EDT, Height, 90, kg, 05/08/23 9:28:00 EDT, Dry Weight Start Date: 05/14/23 Status: Ordered Quantity: 1.0 Unit: each Repeat number: 1 PEG-3350 with Electrolytes (Eqv-NuLYTELY) oral powder for reconstitution See Instructions, EMIRATI INSTRUCTIONS PLEASE. MIX POWDER WITH WATER ACCORDING O THE PRODUCT LABEL.ON THE EVENING BEFORE THE COLONOSCOPY, DRINK 8 OZ PREP FLUID EVERY 15-20 MINUTES UNTIL GONE., # 4,000 mL, 0 Refills, Maintenance, 03/21/23 7:27:00 AM EDT, [id number], 1, EMIRATI INSTRUCTIONS PLEASE. MIX POWDER WITH WATER ACCORDING O THE PRODUCT LABEL. ON THE EVENING BEFORE THE COLONOSCOPY, DRINK8 OZ PREP FLUID EVERY 15-20 MINUTES UNTIL GONE., 160, cm, 12/16/21 17:24:00 EST, Height, 91, kg, 12/16/21 17:24:00 EST, Dry Weight Start Date: 03/21/23 Status: Ordered Quantity: 4000.0 Unit: mL Repeat number: 1 prochlorperazine 10 mg oral tablet 1 tablet = 10 mg, By Mouth, Every 6 hours, PRN as needed for nausea/vomiting, Chemotherapy induced N/V, # 60 tablet, 1 Refills, Maintenance, 08/06/24 8:30:00 AM EDT, [facility]/pharmacy #[id number], Partial fill upon patient request if the prescription is for a schedule II opioid drug., 160, cm, 08/04/24 8:50:00EDT, Height, 85.5, kg, 08/04/24 8:37:00 EDT, Dry Weight Start Date: 08/06/24 Status: Ordered Quantity: 60.0 Unit: tablet Repeat number: 2 Indication: Malignant neoplasm of colon, unspecified Readi-Cat 2 oral suspension 900 mL = 18 Gm, By Mouth, Once, take 450 ml [address] then take 450 ml [address], # 900 mL, 0 Refills, Soft Stop, 05/15/23 10:18:00 AM EDT, [facility]/pharmacy #[id number], Partial fill upon patient request if the prescription is for a schedule II opioid drug., 900 mL By Mouth Once,Instr:take 450 ml [address] then take 450 ml [address], 160, cm, 05/14/23 15:59:00 EDT, Height, 90, kg, 05/08/23 9:28:00 EDT, Dry Weight Start Date: 05/15/23 Status: Ordered Quantity: 900.0 Unit: mL Repeat number: 1 Readi-Cat 2 Smoothie Creamy Vanilla 2% oral suspension See Instructions, take as directed can substitute flavor, # 900 mL, 0 Refills, Maintenance, 10/13/24 3:07:00 PM EST, [id number], Partial fill upon patient request if the prescription is for aschedule II opioid drug., take as directed; can substitute flavor, 159, cm, 10/01/24 14:26:00 EST, Height, 86, kg, 09/20/24 16:00:00 EST, Dry Weight Start Date: 10/13/24 Status: Ordered Quantity: 900.0 Unit: mL Repeat number: 1 Problem List Condition Confirmation Course Effective Dates Status Health St atus Informant COVID-19 1 Confirmed 12/16/21 Active COVID-19 2 Confirmed 11/24/23 Active Colon cancer metastasized to liver Confirmed Active Obese class II Confirmed Active 1Problem added by Discern Expert 2Problem added by Discern Expert Social History Social History Type Response Smoking Status Never (less than 100 in lifetime) entered on: 05/14/23 Sex Sex Representation Female (finding) Note * Sonia Lucio: PERFORM, SIGN, VERIFY Event Display: Patient Education/Instruction Authored Date: [id number] [facility] Oncology Clinical Summary Name NATHALIE VEGAS Age 47 Years 1975 PCP Abiola Youssef DO PCP Visit Date 05/26/2023 09:39:00 Additional Instructions: Scheduled Appointments?? Future Appointments ?No Future Appointments Scheduled Follow-Up Instructions ?? Diagnosis Medications: Please continue your medications until treatment is completed or stopped by your provider. Discuss any questions related to medications with your provider. Medications to Continue Taking That Have Changed These medications were not printed or sent to your pharmacy - Barium Sulfate (barium sulfate 2% oral suspension) Use as instructed. 2 bottles 450 mL each. Refills: 0. Next Dose: - Barium Sulfate (Readi-Cat 2 oral suspension) 900 Milliliter Oral once. take 450 ml [address] then take 450 ml [address] Refills: 0. Next Dose: - Lisinopril (lisinopril 10 mg oral tablet) 1 tab(s) Oral Daily. Next Dose: - Metformin (metFORMIN 500 mg oral tablet) 2 tab(s) Oral twice a day. Next Dose: - Ondansetron (ondansetron 8 mg oral tablet) 1 tab(s) Oral every 8 hours as needed Severe Nausea & Vomiting. Refills: 1. Next Dose: Medications to Continue with No Changes These medications were not printed or sent to your pharmacy amiTRIPTYLINE (amitriptyline 10 mg oral tablet) 1 tab(s) Oral Daily at Bedtime. Next Dose: Baclofen (baclofen 10 mg oral tablet) Start by taking half a tablet By Mouth Daily at bedtime and increase as per written instructions. Next Dose: Dexamethasone (dexamethasone 4 mg oral tablet) 1 tab(s) Oral Daily. Start the Day After Chemotherapy for 3 days with food. Refills: 1. Next Dose: Docusate (docusate sodium 100 mg oral capsule) 1 capsule Oral twice a day. Refills: 0. Next Dose: Ethinyl Estradiol-Norgestimate (Ortho Tri-Cyclen oral tablet) 1 tab(s) Oral Daily. Next Dose: Fluticasone Nasal (fluticasone 27.5 mcg/inh nasal spray) Nares, Both Daily. Next Dose: Hydrochlorothiazide 25 Milligram Oral Daily. Next Dose: Loratadine 10 Milligram Oral Daily. Next Dose: Melatonin (melatonin 5 mg oral tablet) 1 tab(s) Oral Daily at Bedtime. Next Dose: Metronidazole (metroNIDAZOLE 500 mg oral tablet) The night before surgery, take 4 tablets at 7p and4 tablets at 11pm. Refills: 0. Next Dose: Multivitamin With Minerals (CertaVite with Antioxidants) Oral Daily. Next Dose: Naproxen (Naprosyn 500 mg oral tablet) 1 tab(s) Oral twice a day as needed Pain. Refills: 0. Next Dose: Neomycin (neomycin 500 mg oral tablet) the night before surgery, take 4 tablets at 7p and 4 tabletsat 11pm. Refills: 0. Next Dose: Omeprazole (omeprazole 20 mg oral delayed release tablet) 1 tab(s) Oral Daily. Chemotherapy inducedgastritis do not crush or chew. Refills: 1. Next Dose: Omeprazole (omeprazole 20 mg oral enteric coated capsule) 1 capsule Oral Daily for 90 Days. Refills: 1. Next Dose: PEG Electrolyte Solution (PEG-3350 with Electrolytes (Eqv-NuLYTELY) oral powder for reconstitution)EMIRATI INSTRUCTIONS PLEASE. MIX POWDER WITH WATER ACCORDING O THE PRODUCT LABEL. ON THE EVENING BEFORE THE COLONOSCOPY, DRINK 8 OZ PREP FLUID EVERY 15-20 MINUTES UNTIL GONE.. Refills: 0. Next Dose: PEG Electrolyte Solution (PEG-3350 with Electrolytes (Eqv-NuLYTELY) oral powder for reconstitution)Follow instructions on handout or as instructed from office. Refills: 0. Next Dose: PROCHLORperazine (prochlorperazine 10 mg oral tablet) 1 tab(s) Oral every 6 hours as needed as needed for nausea/vomiting. Refills: 1. Next Dose: No Longer Take the Following Medications Cholecalciferol (Vitamin D3 1000 intl units oral tablet) 1 tab(s) Oral Daily. Multivitamin Daily. Senna 8.6 Milligram Oral. Allergy Info:?? NKA Medications Given This Visit Future Orders ?CT Chest W/ Contrast? Order Date:11/24/23?- Complete by?11/28/23 ?CT Abd/Pelvis W/ IV + Oral Contrast? Order Date:11/24/23?- Complete by?11/28/23 Vital Signs Height Weight BMI Blood Pressure / Temperature Pulse Rate Respiratory Rate 02 Sat Mode of Delivery / You can now view a summary of your hospital visit from the comfort of your home through a free online portal called [employer]. [employer] is a website that allows you to securely view your medical information including discharge summary, medications and follow-up visits. ??You can alsosend a secure electronic message to your doctor???s office to request appointments, renew medications or just ask a question. You can enroll at [email or web address] or register during your next office visit. Disclaimer:?? The information provided is of a general nature and is intended to be used in conjunction with the recommendations and advice of your health care practitioner. ??Every effort has been made to ensure that the information provided is accurate and complete at the time it is provided to you however, as your needs change, or, as new ??information becomes available, different or additional instructions may be required. If you have questions, please consult with your primary care provider or pharmacist, as appropriate. ??This information is not intended to serve as substitution for assessment and evaluation by a qualified health care provider. If you do not have a primary care provider, you may find a [facility] provider by calling [facility] [employer] Link at [phone]. [facility], in keeping with [facility] guidance, no longer requires face masks for staff, patientsor visitors in most situations. Similar to time spent indoors at other locations, there is the chance that you were exposed to respiratory viruses during your time with us (such as flu or COVID-19).? If you develop symptoms concerning for a viral respiratory infection, please seek testing (and treatment if indicated) from your medical provider or home test kit. For information about the plan of care including goals and instructions for your diagnosis, please see the patient education orders section of this document. Patient Education Materials?? The content of this educational material or handout may have been modified, supplemented, or adapted from its original content and format to support your individualized medical care. Patient Care team information Care Team Personnel Name: Beth Rodarte MA Position: [facility] Onco RN Member Role: Primary Care Nurse Name: Tabitha Hylton RN Position: S Onco RN Member Role: Primary Care Nurse Name: Shawanda Hernandez RN Position: S Onco RN Member Role: Primary Care Nurse Name: Abiola Youssef DO Position: S Outreach Member Role: PCP Address: [address] [place] [address] Telecom: Name: Dolores Barron RN Position: [facility] Onco RN Member Role: Primary Care Nurse Name: Anca Rodriguez RN Position: S Onco RN Member Role: Primary Care Nurse Name: Sonia Lucio Position: S Onco RN Member Role: Primary Care Nurse Care Team Related Persons Name: BRYSON ROBBINS Name: BRIA BARROW Name: ЕЛЕНА SOLO Name: GENNA VEGAS Insurance Providers Guarantor name: [facility] Information #: 1 Payer: [facility] Member Number: NA Policy Number: NA Group Number: NA
--- OUTSIDE RECORDS SUMMARY | 2025-03-08 14:24 | XMS_ITS | Encounter Summary ---
Author Organization [employer] Address [address] [facility] 7t [place] [address] Care Team Providers Care Paradichlorobenzene Machine Operator Name Role Phone Abiola Youssef DO Primary Care Provider + [phone] Encounter Details Date Type Department Care Team (Late st Contact Info) Description 02/13/2023 Orders Only [facility] [address] [place] [address] Abiola Farnsworth LPN Social History Tobacco Use [...] EDT Narrative 03/03/2023 5:35 PM EDT ? [facility] ? [address] ?[place] [address] ? Mammography Report ? Signed ? Patient: Miller,Iris ?MR#: [id number] ? : 1975 ?Acct:[id number] ? Age/Sex: 47 / F ?ADM Date: 02/28/23 ? Loc: HO.MAMMO ? Attending Dr: Abiola Youssef DO ? Ordering Physician: Maral Patel CNM ?Results: 0Inco ?? mplete: Needs Additional Imaging Evaluation ? Date of Service: 02/28/23 ?Follow Up: Additional Imagi ?? ng ? Procedure(s): MM tomosynthesis screening BI ?? Accession Number(s): [id number] ? cc: Maral Patel CNMadelin ? EXAMINATION: [...] for additional ?? imaging. ? Dictated By: ?Alonzo Marcelo MD ? Signed By: ?<Electronically signed by Alonzo Marcelo MD in OV> ?03/03/23 1732 ? DD/ 1610 ? TD/TT: ? Beam Dyer Recessed Vat: SK ? Procedure Note Teddy, Image - 03/03/2023 [facility] [address] [place] [address] [place] [address] Mammography Report Signed Patient: Carlos Miller#: [id number] : 1975Acct:[id number] Age/Sex: 47 / FADM Date: 02/28/23 Loc: HO.MAMMO Attending Dr: Abiola Youssef DO Ordering Physician: Maral Patel CNMResults: 0Inco mplete: Needs Additional Imaging Evaluation Date of Service: 02/28/23Follow Up: Additional Imagi ng Procedure(s): MM tomosynthesis screening BI Accession Number(s): [id number] cc: Maral Patel CNM EXAMINATION: MM SCREENING [...] in OV> 03/03/23 1732 DD/ 1610 TD/TT: Beam Dyer Recessed Vat: PUSHPA [facility] External Provider IMG BI PROCEDURES Edited Result - Final * XR Knee 3 Views Right (02/28/2023 12:55 PM EDT) Anatomical Region Laterality Modality Lower Extremities, Knee Right Radiogra [facility] Imaging 02/28/2023 12:5 5 PM EDT Narrative 03/12/2023 6:06 PM EDT ? [facility] ?[address] ?[place] [address] ?XRay Report ? Signed ? Patient: Miller,Iris ?MR#: [id number] ? : 1975 ?Acct:[id number] ? Age/Sex: 47 / F ?ADM Date: 02/28/23 ? Loc: HO.XRAY ? Attending Dr: Abiola Youssef DO ? Ordering Physician: Abiola Youssef DO ?? Date of Service: 02/28/23 ?? Procedure(s): XR knee RT 3V ?? Accession Number(s): [id number] ? cc: Abiola Youssef DO ? EXAMINATION: [...] 1803 ? DD/ 1255 ? TD/TT: ? Beam Dyer Recessed Vat: ? Procedure Note Hank Espinal - 05/14/2023 [place] [id number] [facility] [place] [address] XRay Report Signed Patient: Cindy Miller#: [id number] : 1975Acct:[id number] Age/Sex: 47 / FADM Date: 02/28/23 Loc: HO.MICAELAAY Attending Dr: Abiola Youssef DO Ordering Physician: Abiola Youssef DO Date of Service: 02/28/23 Procedure(s): XR knee RT 3V Accession Number(s): [id number] cc: Abiola Youssef DO EXAMINATION: XR BILATERAL [...] in OV> 03/12/23 1803 DD/ 1255 TD/TT: Beam Dyer Recessed Vat: [facility] External Provider IMG XR PROCEDURES Edited Result - Final * XR Knee 3 Views Left (02/28/2023 12:55 PM EDT) Anatomical Region Laterality Modality Lower Extremities, Knee Left Radiogra phic Imaging 02/28/2023 12:5 5 PM EDT Narrative 03/12/2023 6:06 PM EDT ? [facility] ?[address] ?[place] [address] ?XRay Report ? Signed ? Patient: Miller,Iris ?MR#: [id number] ? : 1975 ?Acct:[id number] ? Age/Sex: 47 / F ?ADM Date: 04/14/23 ? Loc: HO.XRAY ? Attending Dr: Abiola Youssef DO ? Ordering Physician: Abiola Youssef DO ?? Date of Service: 02/28/23 ?? Procedure(s): XR knee LT 3V ?? Accession Number(s): [id number] ? cc: Abiola Youssef DO ? EXAMINATION: [...] ?03/12/233 ? DD/ 1255 ? TD/TT: ? Beam Dyer Recessed Vat: ? Procedure Note Hank Espinal - 05/14/2023 [place] [address] XRay Report Signed Patient: Carlos Miller#: [id number] : 1975Acct:[id number] Age/Sex: 47 / FADM Date: 02/28/23 Loc: ADE Attending Dr: Abiola Youssef DO Ordering Physician: Abiola Youssef DO Date of Service: 02/28/23 Procedure(s): XR knee LT 3V Accession Number(s): [id number] cc: Abiola Youssef DO EXAMINATION: XR BILATERAL [...] in OV> 03/12/23 1803 DD/ 1255 TD/TT: Beam Dyer Recessed Vat: [facility] External Provider IMG XR PROCEDURES Edited Result - Final documented in this encounter Visit Diagnoses Not on filedocumented in this encounter Care Teams Paradichlorobenzene Machine Operator Relationship Specialty Start Date End Date Abiola Youssef DO [address] [place] [id number] PCP - General Family Medicine 08/01/15 documented as of this encounter
--- OUTSIDE RECORDS SUMMARY | 2025-03-08 14:24 | XMS_ITS | Encounter Summary ---
Author Organization [employer] Address [address] [facility] 7t [place] [address] Care Team Providers Care Sow Farm Manager Name Role Phone Abiola Youssef DO Primary Care Provider + [phone] Reason for Visit * Reason Comments Med Refill Encounter Details Date Type Department Care Team ([facility] st Contact Info) Description 11/15/2024 Refill [facility] MEDICINE [address] [place], [place] [phone] Abiola Youssef DO [address] [place], [place] [phone] Social History Tobacco Use Types Packs/Day Years [...] documented as of this encounter Care Teams Sow Farm Manager Relationship Specialty Start Date End Date Abiola Youssef DO [address] [place] [address] PCP - General Family Medicine 08/01/15 documented as of this encounter
--- OUTSIDE RECORDS SUMMARY | 2025-03-08 14:24 | XMS_ITS | Encounter Summary ---
Author Organization [employer] Address [address] [facility] [address] [place] [address] Care Team Providers Care Block Mason Name Role Phone Abiola Youssef DO Primary Care Provider + [phone] Reason for Visit * Reason Onset Date Comments PT1 01/14/2025 Encounter Details Date Type Department Care Team ([facility] st Contact Info) Description 01/14/2025 Telephone [facility] MEDICINE [address] [place], [place] [phone] Abiola Youssef DO [address] [place], [place] [phone] PT1 Social History Tobacco Use Types Packs/Day [...] Y/N: Yes Provider name or facility name: [address] [place] [address] [facility] [address] [facility] Escort needed: Y/N: Yes Do you have [...] documented as of this encounter Care Teams Block Mason Relationship Specialty Start Date End Date Abiola Youssef DO [address] [place] [address] PCP - General Family Medicine 08/01/15 documented as of this encounter
--- OUTSIDE RECORDS SUMMARY | 2025-03-08 14:25 | XMS_ITS | Encounter Summary ---
Author Organization [employer] [facility] Address [address] [facility] 7t [place] [address] Care Team Providers Care Buffer Automatic Name Role Phone Abiola Youssef DO Primary Care Provider + [phone] Reason for Visit * Reason Onset Date Comments triage 03/18/2023 Encounter Details Date Type Department Care Team ([facility] st Contact Info) Description 03/18/2023 Telephone [facility] MEDICINE [address] [place], [place] [phone] Abiola Youssef DO [address] [place] [address] triage Social History Tobacco Use Types Packs/Day [...] 2:21 PM EDT 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 * Telephone Encounter - Emily Mauricio - 03/18/2023 1:32 PM EDT Patient calling to report heartburn . Patient speaks Lithuanian. Advised triage nurse will call patient back. documented in this encounter Plan of Treatment Not on file documented as of this encounter Visit Diagnoses Not on filedocumented in this encounter Care Teams Buffer Automatic Relationship Specialty Start Date End Date Abiola Youssef DO [address] [place] [address] PCP - General Family Medicine 08/01/15 documented as of this encounter
--- OUTSIDE RECORDS SUMMARY | 2025-03-08 14:25 | XMS_ITS | Encounter Summary ---
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 Pt does have dx of chronic gastric reflux. Pain comesand goes and has been increased for the last week. Pt doesn't use tums , mylanta or maalox for this. Pt is advised to come to [facility] today to be seen and Pt declines reports is at work right now. Pt denies eating any fatty, fried foods. Pt has been drinking sprite recently to help expel gas. Home care reviewed with Pt . Pt declined offered apt with PCP. Pt reports will come to [facility] at some point . Protocol Used: Abdominal [...] on filedocumented in this encounter Care Teams Event Marketing Assistant Relationship Specialty Start Date End Date Abiola Youssef DO [address] [place] [address] PCP - General Family Medicine 08/01/15 documented as of this encounter
--- OUTSIDE RECORDS SUMMARY | 2025-03-08 14:25 | XMS_ITS | Clinical Summary ---
Author Organization [employer] Address [address] [place] [address] [address] [place] [address] Care Team Providers Care Yardage Tufting Machine Operator Name Role Phone JulyAbiola slater Primary Care Provider [phone] Allergies No known active allergies Medications aspirin-acetaminoph [...] complication, without long-term current use of insulin ([facility]) Use to test blood sugar once daily 1 kit 023 Active OneTouch Delica Lancets 33G miscIndications:Typ e 2 diabetes mellitus without complication, without long-term current use of insulin ([facility]) Use to test blood sugar once daily [...] tablet 025 Active Lancets (OneTouch Delica Plus [id number]) misc USE TO TEST BLOOD SUGAR ONCE [...] DO NOT CRUSH OR CHEW 025 Active fluticasone (Flonase) 50 MCG/ACT nasal [...] AT BEDTIME 30 tablet 11 025 Active baclofen (Lioresal) 10 MG tabletIndications:M uscle spasm TAKE 1 TABLET BY MOUTH THREE TIMES A DAY 60 tablet 025 Active amitriptyline (Elavil) 25 MG [...] INSOMNIA 180 tablet 1 024 2024 Discontinued baclofen (Lioresal) 10 MG tabletIndications:M uscle spasm TOME 1 TABLETA POR VIA ORAL CHICA VECES AL RAI 60 tablet 025 2024 Discontinued naproxen (Naprosyn) 500 MG tabletIndications:P ain TOME 1 TABLETA POR VIA ORAL DOS VECES AL RAI 30 tablet 025 2024 Discontinued baclofen (Lioresal) 10 MG tabletIndications:M uscle spasm TOME 1 TABLETA POR VIA ORAL CHICA VECES AL RAI 60 tablet 025 2024 Discontinued Active Problems Problem [...] Encounters Date Type Department Care Team Description 02/28/2025 Refill [facility] [address] [place] [address] Abiola Youssef DO Muscle spasm 02/16/2025 Refill [facility] [address] [place] [address] Abiola Youssef DO Nonintractable chronic migraine 02/11/2025 Refill [facility] [address] [place] [address] Abiola Youssef DO Insomnia, unspecified type; Chronic gastroesophageal reflux disease; Pain 02/11/2025 Telephone [facility] [address] [place] [address] Abiola Youssef DO Results 02/11/2025 Refill [facility] [address] [place] [address] Abiola Youssef DO Seasonal allergic rhinitis, unspecified trigger 02/09/2025 Refill [facility] [address] [place] [address] Abiola Youssef DO Muscle spasm 02/08/2025 9:45 AM EDT Office Visit [facility] [address] [place] [address] Abiola Youssef DO Essential hypertension (Primary Dx); Prediabetes; Chronic migraine; Chronic gastroesophageal reflux disease; Chronic constipation; Adenocarcinoma of colon metastatic to liver (CMS/HCC); Healthcare maintenance; Encounter for immunization 02/08/2025 Travel 02/03/2025 Refill [facility] [address] [place] [address] Abiola Youssef DO Pain 01/31/2025 10:00 AM EDT Office Visit [facility] OPTOMET[facility] [address] [place] [address] Ousmane, Misty, OD 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 () Department [address] [place] [phone] Provider, Population Health Generic 01/20/2025 Refill [facility] [address] [place] [address] Abiola Youssef DO Muscle spasm; Pain 01/14/2025 Patient Outreach [facility] [address] [place] [address] Abiola Youssef DO Care Coordination (CHW outreach for SDOH PT-1 -referral completed /) 01/14/2025 Telephone [facility] [address] [place] [phone] Abiola Youssef DO PT1 01/10/2025 1:15 PM EST Office Visit [facility] [address] [place] [address] [place], [facility] Adenocarcinoma of sigmoid colon (CMS/HCC) (Primary Dx); S/P left colectomy; Postoperative wound dehiscence, initial encounter; Other chest pain 01/10/2025 Travel 01/08/2025 Refill [facility] [address] [place] [address] Abiola Youssef DO 12/30/2024 Refill [facility] [address] [place] [address] Abiola Youssef DO Pain; Muscle spasm 12/30/2024 Travel 12/28/2024 Patient Outreach [facility] [address] [place] [address] Abiola Youssef DO Transition Of Care (Tcm) (HDF scheduled and SDOH screening negative and Tobacco screening negative) 12/28/2024 Patient Outreach [facility] [address] [place] [address] Abiola Youssef DO Transition Of Care (Tcm) (HDF unscheduled LVM ) 12/27/2024 Refill [facility] [address] [place] [address] Abiola Youssef DO 12/22/2024 Refill [facility] [address] [place] [address] Abiola Youssef DO Seasonal allergies 12/13/2024 Refill [facility] [address] [place] [address] Abiola Youssef DO Muscle spasm; Pain 12/13/2024 Refill [facility] [address] [place] [phone] Joelle Piña MD 12/08/2024 2:00 PM EST Office Visit [facility] ADULT DENTAL [address] [place] [phone] Edith Lee DDS Teeth missing (Primary Dx) from Last [...] 09/23/2024 03/22/2024 Depression Screening 02/18/2025 02/19/2024, 02/19/20 24 Dental X-Ray: Bitewings 03/23/2025 03/22/2024 Diabetes: Hemoglobin A1C 08/11/2025 025, 02/19/2024, 09/16/2022, Additional history exists Cervical Cancer Screening 09/29/2025 HPV/Cotest 09/29/2025 09/29/2020, 09/17, 09/29/2020 Pap Smear 09/29/2025 09/29/2020 SDOH Screening 12/28/2025 12/28/2024 Diabetes: Urine Protein Screening 02/08/2026 02/08/2025, 09/16/2022, 09/11/2021, Additional history exists Lipid Panel 02/08/2026 02/08/2025, 04/0 02/2024, 09/16/2022, Additional history exists Tobacco Screening 02/08/2026 02/08/2025 Mammogram 03/02/2026 03/02/2024, 05/0 07/2023, 03/25/2023, Additional history exists Zoster Vaccines [...] Additional history exists HIV Screening Completed 02/08/2025, 040 02/2024, 09/16/2022, Additional history exists Hepatitis C [...] Procedure Name Priority Date/Time Associated Diagnosis Comments BACTERIAL VAGINOSIS PANEL Routine 02/21/2025 1:49 PM EDT CHLAMYDIA/N. GONORRHOEAE RNA, TMA, UROGENITAL Routine 02/21/2025 1:49 PM EDT HEPATITIS B CORE AB TOTAL Routine 02/08/2025 [...] Routine 12/08/2024 2:00 PM EST Teeth missing INTRAORAL - COMPLETE SERIES OF RADIOGRAPHIC IMAGES Routine 03/22/2024 10:30 AM EDT COMPREHENSIVE ORAL EVALUATION - NEW OR ESTABLISHED PATIENT Routine 03/22/2024 10:30 AM EDT BI MAMMOGRAM SCREENING TOMOSYNTHESIS BILATERAL Routine 03/02/2024 12:47 PM EDT HM PAP/HPV Routine 09/29/2020 from Last 3 Months or Most Recently Relevant to Health Maintenance Results * (ABNORMAL) Bacterial Vaginosis (02/21/2025 1:49 PM EDT) TRICHOMONAS VAGINALIS DETECTION BY PCR NOT DETECTED Not Detect [facility] BACTERIAL VAGINOSIS DETECTION BY PCR POSITIVE(A) Negative [facility] Comment:The BV organism targ ets of the Xpert Xpress MVP test can becommensal in women; Xpert Xpress MVP positive results forbacterial vaginosis should be considered in conjunction withother clinical and patient information to determine thedisease status. Organisms that are not detected by the XpertXpress MVP test have also been reported to be associatedwith BV and aerobic vaginitis.The Xpert Xpress MVP test performance has not been evaluatedin patients under the age of 14. MARJ GROUP DETECTION BY PCR NOT DETECTED Not Detect [facility] Marj glab krusei PCR NOT DETECTED Not Detect [facility] 02/21/2025 1:49 PM EDT 02/21/2025 3:11 PM EDT us Generic External Data Provider LAB MICROBIOLOGY - GENERAL ORDERABLES Final Result [facility] [address] [place] [phone] * Chlamydia/N. Gonorrhoeae RNA, TMA, Urogenitial (02/21/2025 1:49 PM EDT) Only the most recent of2 resultswithin the time period is included. CT PCR NOT DETECTED Not Detect. [facility] Comment:A not detected test result does [...] psychologicalconsequences. NG PCR NOT DETECTED Not Detect. [facility] Comment:A not detected test result does [...] lead to adverse medical, social or psychologicalconsequences. 02/21/2025 1:49 PM EDT 02/21/2025 3:11 PM EDT Narrative [facility] - 02/22/2025 6:39 AM EDT Vaginal us Generic External Data Provider LAB MICROBIOLOGY - GENERAL ORDERABLES Final Result Performing Organization Address [facility] Co de Phone Number [facility] [address] [place] [phone] * Hepatitis C Antibody with Reflex to HCV, RNA, Quantitative, Real-Time PCR (02/08/2025 12:44 PM EDT) Pathologist [facility] Hepatitis C Antibody Nonreactive Nonreactive [facility] Comment:Antibodies to HCV no t detected; does not exclude early acuteHCV infection. Blood Venous blood specimen / Unknown 02/08/2025 12:44 PM EDT 02/08/2025 1:12 PM EDT us Abiola Youssef DO LAB BLOOD ORDERABLES Final R esult Performing Organization Address [facility] Co de Phone Number [facility] [address] [place] [phone] * Hepatitis A Antibody, Total (02/08/2025 12:44 PM EDT) Hepatitis A Antibody IgG Nonreactive Nonreactive [facility] Blood Venous blood specimen / Unknown 02/08/2025 12:44 PM EDT 02/08/2025 1:12 PM EDT Abiola Youssef DO LAB BLOOD ORDERABLES Final R esult Performing Organization Address [facility] Co de Phone Number [facility] [address] [place] [phone] * Hepatitis B surface antigen, EIA (02/08/2025 12:44 PM EDT) Pathologist [facility] Hepatitis B Surface Ag Negative Negative [facility] Blood Venous blood specimen / Unknown 02/08/2025 12:44 PM EDT 02/08/2025 1:12 PM EDT Abiola Youssef LAB BLOOD ORDERABLES Final R esult Performing Organization Address [facility] Co de Phone Number [facility] [address] [place] [phone] * Hepatitis B Core Antibody, Total (02/08/2025 12:44 PM EDT) Pathologist [facility] Hepatitis B Core Antibody Nonreactive Nonreactive [facility] Blood Venous blood specimen / Unknown 02/08/2025 12:44 PM EDT 02/08/2025 1:12 PM EDT Abiola Domonique DO LAB BLOOD ORDERABLES Final R esult Performing Organization Address [facility] de Phone Number [facility] [address] [place] [phone] * RPR (Monitor) with Reflex to??Titer (02/08/2025 12:44 PM EDT) RPR (Monitor) w/Refl Titer NON-REACTI VE NON-REACT FRANK [facility] Comment:THIS TEST WAS PERFOR MED AT:[facility] [place] [phone] DORMAN MD Rapid Plasma Reagin Ab Titer TNP [facility] Blood Venous blood specimen / Unknown 02/08/2025 12:44 PM EDT 02/08/2025 1:12 PM EDT Abiola Domonique LAB BLOOD ORDERABLES Final R esult Performing Organization Address City/[facility]/ZIP Co de Phone Number [facility] [address] [place] [phone] * HIV-1/2 Antigen and Antibodies, Fourth Generation, with Reflexes (02/08/2025 12:44 PM EDT) HIV AB/AG Nonreactive Nonreactive [facility] Comment:HIV-1 p24 Ag and/or HIV-1/HIV-2 Ab not detected.A test result that is nonreactive does not exclude thepossibility of exposure to or infection with HIV-1 and/orHIV-2. Nonreactive results in this assay for individualswith prior exposure to HIV-1 and/or HIV-2 may be due toantigen and antibody levels that are below the limit ofdetection of this assay.The [employer] HIV Ag/Ab Combo assay result andsupplemental assay results should be interpreted inconjunction with the patient's clinical presentation,history and other laboratory results. If the results areinconsistent with clinical evidence, additional testing issuggested to confirm the result. Blood Venous blood specimen / Unknown 02/08/2025 12:44 PM EDT 02/08/2025 1:12 PM EDT Abiola Jurbryon LAB BLOOD ORDERABLES Final R esult Performing Organization Address City/[facility]/ZIP Co de Phone Number [facility] [address] [place] [phone] * Hepatitis B Surface Antibody, Qualitative (02/08/2025 12:44 PM EDT) Pathologist [facility] ~Hepatitis B Surface Antibody NONREACTIVE Nonreactive [facility] Comment:Nonreactive: < 8.00 mIU/mL Blood Venous blood specimen / Unknown 02/08/2025 12:44 PM EDT 02/08/2025 1:12 PM EDT Abiola Youssef DO LAB BLOOD ORDERABLES Final R esult [facility] [address] [place] [phone] * Vitamin D, 25-Hydroxy, Total, Immunoassay (02/08/2025 10:44 AM EDT) [facility] Vitamin D 25-OH Total 46.8 >30 ng/mL [facility] Comment: Health Based Reference Values*< 20 ??ng/mL ??Ulcmgqlce30-61 ng/mL ??Insufficient> 30 ??ng/mL ??Sufficient*Charmaine FREEMAN. N [...] ORDERABLES Final R esult Performing Organization Address [facility] Co de Phone Number [facility] [address] [place] [phone] * Albumin, Random Urine W/Creatinine (02/08/2025 10:44 AM EDT) Creatinine, Urine 180.67 mg/dL [facility] Microalbumin Urine 20.0 mg/L [facility] Microalbum Creatinine Ratio Ur 11.0 <30 ug/mg cr [facility] Comment:Albumin/Creatinine R atio Reference Ranges: Normal: < 30 ug/mg creatinine Microalbuminuria: 30 - 300 ug/mg creatinineClinical Albuminuria: > 300 ug/mg creatinine Urine (Urine, Random) 02/08/2025 10:44 AM EDT 02/08/2025 1:05 PM EDT us Abiola Domonique DO LAB URINE ORDERABLES Final R esult Performing Organization Address [facility] Co de Phone Number [facility] [address] [place] [phone] * CBC (02/08/2025 10:44 AM EDT) White Blood Count 5.3 4.8 - 10.8 X10*3/uL [facility] Red Blood Count 4.24 4.20 - 5.50 X10*6/uL [facility] Hemoglobin 12.6 12.0 - 16.0 g/dl [facility] Hematocrit 38.0 37.0 - 47.0 % [facility] Mean Corpuscular Volume 89.6 80.0 - 98.0 fL [facility] Mean Corpuscular Hemoglobin 29.7 27.0 - 33.0 pg [facility] Mean Corpuscular HGB Conc 33.2 31.0 - 35.0 g/dl [facility] Red Cell Distribution Width 14.1 11.0 - 16.0 % [facility] Platelet Count 172 160 - 400 X10*3/uL [facility] Mean Platelet Volume 11.2 9.4 - 12.3 fL [facility] NRBC Pct Auto 0.0 0.0 - 0.2 /100WBC [facility] NRBC Abs Auto 0.000 0.0 - 0.012 X10*3/uL [facility] Blood Venous blood specimen / Unknown 02/08/2025 10:44 AM EDT 02/08/2025 1:12 PM EDT Abiola Domonique DO LAB BLOOD ORDERABLES Final R esult Performing Organization Address [facility]/ZIP Co de Phone Number [facility] [address] [place] [phone] * TSH (02/08/2025 10:44 AM EDT) Thyroid Stimulating Hormone 1.00 0.32 - 4.0 uIU/mL [facility] Comment:TSH 3rd Generation ( Sensee) Blood Venous blood specimen / Unknown 02/08/2025 10:44 AM EDT 02/08/2025 1:12 PM EDT Abiola Youssef DO LAB BLOOD ORDERABLES Final R esult Performing Organization Address [facility] Co de Phone Number [facility] [address] [place] [phone] * T4, Free (02/08/2025 10:44 AM EDT) Free T4 (Free Thyroxine) 1.00 0.71 - 1.85 ng/dL [facility] Blood Venous blood specimen / Unknown 02/08/2025 10:44 AM EDT 02/08/2025 1:12 PM EDT Abiola Domonique DO LAB BLOOD ORDERABLES Final R esult [facility] [address] [place] [phone] * (ABNORMAL) Hemoglobin A1c (02/08/2025 10:44 AM EDT) Hemoglobin A1c 6.6(H) <6.0 % [facility] Comment:Hemoglobin A1C Refer ence Range Adults: 4.8 - 6.0 % Non diabetic: < 6.0 % Goal: < 7.0 %Additional Action Suggested: > 8.0 %Note: Hemoglobin A1c results are invalid for patients with abnormal amounts of HbF. Blood transfusions may impact the HbA1c concentration in the patient sample. Estimated Average Glucose 143 mg/dL [facility] Comment:eAG = Estimated ave rage glucose which is %A1C expressed asaverage glucose, using the formula of the A1G-RnigempNmvqric Glucose study (ADAG), Diabetes Care, Vol.31,#8,Jun. 2007 Blood Venous blood specimen / Unknown 02/08/2025 10:44 AM EDT 02/08/2025 1:12 PM EDT us Abiola Youssef DO LAB BLOOD ORDERABLES Final R esult [facility] [address] [place] [phone] * (ABNORMAL) Hepatic Function Panel (02/08/2025 10:44 AM EDT) Bilirubin, Total 0.4 0.0 - 1.0 mg/dL [facility] Bilirubin, Direct 0.2 0.0 - 0.5 mg/dL [facility] Aspartate Amino Transferase 29 5 - 31 U/L [facility] Alanine Aminotransferase 43(H) 0 - 31 U/L [facility] Total Protein 7.2 6.5 - 8.0 g/dL [facility] Albumin Level 3.9 3.5 - 5.0 g/dL [facility] Alkaline Phosphatase 96 39 - 117 U/L [facility] Blood Venous blood specimen / Unknown 02/08/2025 10:44 AM EDT 02/08/2025 1:12 PM EDT us Abiola Youssef DO LAB BLOOD ORDERABLES Final R esult Performing Organization Address [facility] Co de Phone Number [facility] [address] [place] [phone] * (ABNORMAL) Lipid Panel, Standard (02/08/2025 10:44 AM EDT) Triglycerides 128 <150 mg/dL [facility] Comment:Desirable Triglyceri de: less than 150 mg/dLBorderline High Triglyceride 150-199 mg/dLHigh Triglyceride: 200-499 mg/dLVery High Triglyceride: greater than or equal to 5OO mg/dL Cholesterol 187 <200 mg/dL [facility] Comment:Desirable Cholestero l: less than 200 mg/dLBorderline High Cholesterol: 200-239 mg/dLHigh Cholesterol: greater than 239 mg/dL LDL Cholesterol Calculated 120(H) <100 mg/dL [facility] Comment:Desirable LDL: less than 100 mg/dLNear Optimal/Above Optimal LDL: 110- 129 mg/dLBorderline High LDL: 130-159 mg/dLHigh LDL: 160-189 mg/dLVery High LDL: greater than or equal to 190 mg/dL HDL Cholesterol 42 >40 mg/dL [facility] Comment:Desirable HDL: great er than 40 mg/dL Note: This HDL assay may give artificially low results in patients with liver disease. Blood Venous blood specimen / Unknown 02/08/2025 10:44 AM EDT 02/08/2025 1:12 PM EDT us Abiola Youssef DO LAB BLOOD ORDERABLES Final R esult Performing Organization Address City/[facility]/ZIP Co de Phone Number [facility] [address] [place] [phone] * (ABNORMAL) Basic Metabolic Panel (02/08/2025 10:44 AM EDT) Sodium 138 135 - 145 mmol/L [facility] Potassium 3.7 3.3 - 5.1 mmol/L [facility] Chloride 102 96 - 108 mmol/L [facility] Carbon Dioxide 29 22 - 29 mmol/L [facility] Anion Gap 11(L) 12 - 20 [facility] Urea Nitrogen (BUN) 12 9 - 16 mg/dL [facility] Creatinine, Serum 0.69 0.5 - 1.4 mg/dL [facility] Estimated Glomerular Filt Rate >60 [facility] Comment:Chronic Kidney Disea se: Estimated GFR < 60 mL/min/1.12j6Ofsbcb Kidney Disease: Estimated GFR < 15 mL/min/1.73m2 Glucose 147(H) 60 - 115 mg/dL [facility] Calcium 9.3 8.4 - 10.2 mg/dL [facility] Blood Venous blood specimen / Unknown 02/08/2025 10:44 AM EDT 02/08/2025 1:12 PM EDT us Abiola Youssef DO LAB BLOOD ORDERABLES Final R esult [facility] [address] [place] [phone] * OCT, Optic Nerve - OU - Both Eyes (01/31/2025 11:11 AM EDT) Narrative Misty Romeo, OD - 01/31/2025 11:11 AM EDT Right [...] ECG 12 lead (01/11/2025 1:55 PM EST) Narrative [place], ENGINEERING TECHNICIAN PARKING - 01/11/2025 1:55 PM EST NSR Kasandra [place] ENGINEERING TECHNICIAN PARKING ECG ORDERABLES Final Result * BI Mammogram Screening Tomosynthesis Bilateral (03/02/2024 12:47 PM EDT) Anatomical Region Laterality Modality Breast Bilateral Mammography 03/02/2024 12:4 7 PM EDT Narrative 03/08/2024 8:11 PM EDT ? [facility] ? [address] ?[place] [address] ? Mammography Report ? Signed ? Patient: Miller,Iris ?MR#: [id number] ? : 1975 ?Acct:[id number] ? Age/Sex: 48 / F ?ADM Date: /16/24 ? Loc: HO.MAMMO ? Attending Dr: Abiola Youssef DO ? Ordering Physician: Domonique,Abiola A DO ?Results: 2B ?? enign Findings ? Date of Service: 04/16/24 ?Follow Up: 1 Year From Orig ?? inal Mammogram ? Procedure(s): MM tomosynthesis screening BI ?? Accession Number(s): [id number] ? cc: Abiola Youssef DO ? EXAMINATION: ?? MM SCREENING DIGITAL BREAST TOMOSYNTHESIS, BILATERAL ? CLINICAL INFORMATION: ? Screening. Asymptomatic. ? The patient is status post bilateral breast reduction. ?? COMPARISON: ?? Mammography: This study is compared with prior exams dating back to ?? 2017. ? TECHNIQUE: ?? Digital breast tomosynthesis is [...] by Verónica Mejia MD in OV> ? 03/08/24 2007 ? DD/ 1247 ? TD/TT: ? Cath Lab Tech: ? Procedure Note Hank Espinal - 03/08/2024 [facility] [address] [place] [address] Mammography Report Signed Patient: Cindy Miller#: [id number] : 1975Acct:[id number] Age/Sex: 48 / FADM Date: 03/02/24 Loc: HO.MAMMO Attending Dr: Abiola Youssef DO Ordering Physician: Abiola Youssefults: 2B enign Findings Date of Service: 03/02/24Follow Up: 1 Year From [facility]a Mammogram Procedure(s): MM tomosynthesis screening BI Accession Number(s): [id number] cc: Abiola Youssef DO EXAMINATION: MM SCREENING [...] MD in OV> 03/08/242006 DD/ 1247 TD/TT: Cath Lab Tech: us Abiola Youssef DO IMG BI PROCEDURES Edited Res ult - Final * Hm Pap Smear (09/29/2020) Pap Negative for intraephithelial lesion or malignancy Negative for intraephithelial lesion or malignancy, Other HPV Undetected Historical Provider HEALTH MAINTENANCE Final Result from Last 3 Months or Most Recently Relevant to Health Maintenance Insurance [place] [facility] ADULT Care Teams Yardage Tufting Machine Operator Relationship Specialty Start Date End Date Abiola Youssef DO [address] [place] [address] [phone] PCP - General Family Medicine 08/01/15
--- OUTSIDE RECORDS SUMMARY | 2025-03-08 14:25 | XMS_ITS | Encounter Summary ---
Author Organization [employer] [facility] Address [address] [place] [address] Care Team Providers Care Crm Solution Architect Name Role Phone Abiola Youssef DO Primary Care Provider + [phone] Encounter Details Date Type Department Care Team (Late st Contact Info) Description 08/15/2023 Abstract [facility] [address] [place], [place] [phone] Abiola Youssef DO [address] [place], [place] [phone] Social History Tobacco Use Types Packs/Day Years [...] on filedocumented in this encounter Care Teams Crm Solution Architect Relationship Specialty Start Date End Date Abiola Youssef DO [address] [place] [address] PCP - General Family Medicine 08/01/15 documented as of this encounter
--- OUTSIDE RECORDS SUMMARY | 2025-03-08 14:25 | XMS_ITS | Encounter Summary ---
Author Organization [employer] Address [address] [place] [address] Care Team Providers Care Assistant Printer Floor Covering Name Role Phone Abiola Youssef DO Primary Care Provider + [phone] Reason for Visit * Reason Comments Med Refill Encounter Details Date Type Department Care Team ([facility] st Contact Info) Description 02/03/2025 Refill [facility] [address], [place] [phone] Abiola Youssef DO [address], [place] [phone] Pain Social History Tobacco Use Types Packs/Day [...] documented as of this encounter Care Teams Assistant Printer Floor Covering Relationship Specialty Start Date End Date Abiola Youssef DO [address] [place] [address] PCP - General Family Medicine 08/01/15 documented as of this encounter
== END 2025-03-08 12:04 | disposition home or self-care (01) ==
LOC: HO.MAMMO 12:03
PROVIDERS: PCP Family Medicine; Visit Provider Family Medicine
DX: Z12.31 Encounter for screening mammogram for malignant neoplasm of breast (principal)
CPT/HCPCS: 77063; 77067

== ENCOUNTER → 2025-03-08 12:30 | Outpatient (BNV) | payer MEDICAID, SELFPAY | PROVIDERS: PCP Family Medicine; Visit Provider Internal Medicine | DX: Z12.31 Encounter for screening mammogram for malignant neoplasm of breast (principal) | CPT/HCPCS: 77063; 77067 ==